=== PATIENT | female | born 1980 | race Hispanic/Latino ===

== ENCOUNTER 2020-11-07 09:03 | Outpatient (CLI) | payer OTHER, SELFPAY ==
[2020-11-07] MEDS ORDERED: Iopamidol 370 76% 100 ML VIAL ONE (14:31)
== END 2020-11-07 09:04 | disposition home or self-care (01) ==
LOC: CT 09:03
PROVIDERS: ATTEND Internal Medicine Hematology & Oncology
DX: Z51.11 Encounter for antineoplastic chemotherapy (principal); C50.812 Malignant neoplasm of overlapping sites of left female breast; N63.20 Unspecified lump in the left breast, unspecified quadrant; R59.0 Localized enlarged lymph nodes; R91.8 Other nonspecific abnormal finding of lung field; N20.0 Calculus of kidney
CPT/HCPCS: 71260; 74177; 78306; A9503; Q9967

== ENCOUNTER 2020-11-10 09:05 | Day surgery (SDC) | payer OTHER, SELFPAY ==
[2020-11-10] MEDS ORDERED: diphenhydrAMINE 25 MG CAP PO SCH (09:45)
[2020-11-10] MEDS ORDERED: Acetaminophen 500 MG TAB PO SCH (09:45)
[2020-11-10 10:57] VITALS: TEMP 98
[2020-11-10 12:20] VITALS: BP 105/56
== END 2020-11-10 12:30 | disposition home or self-care (01) ==
LOC: ONC/OP 09:05
PROVIDERS: ATTEND Internal Medicine Hematology & Oncology
PROC: 30233N1 Transfusion of Nonautologous Red Blood Cells into Peripheral Vein, Percutaneous Approach (ICD-10-PCS; principal; 2020-11-10)
DX: D64.9 Anemia, unspecified (principal); D69.6 Thrombocytopenia, unspecified
CPT/HCPCS: 36430; 86850; 86900; 86901; P9016; Q0163

== ENCOUNTER 2020-11-11 12:30 | Outpatient (CLI) | payer OTHER, SELFPAY | END 2020-11-11 12:31 | disposition home or self-care (01) | LOC: ULT 12:30 | PROVIDERS: ATTEND Internal Medicine Hematology & Oncology | DX: Z51.11 Encounter for antineoplastic chemotherapy (principal); C50.812 Malignant neoplasm of overlapping sites of left female breast; I08.1 Rheumatic disorders of both mitral and tricuspid valves | CPT/HCPCS: 93306 ==

== ENCOUNTER 2020-11-21 09:17 | Outpatient (CLI) | payer OTHER | END 2020-11-21 09:18 | disposition home or self-care (01) | LOC: PET 09:17 | PROVIDERS: ATTEND Internal Medicine Hematology & Oncology | DX: C50.812 Malignant neoplasm of overlapping sites of left female breast (principal) | CPT/HCPCS: 78815; A9552 ==

== ENCOUNTER 2020-12-05 10:57 | Day surgery (SDC) | payer OTHER ==
[~2020-12-05 10:57] MED LIST: CARBOPLATIN IVPB SCH; Dexamethasone 10 MG, Ondansetron 2MG/ML MDV 10 MG in Sodium Chloride 0.9% 50 ML IVPB SCH; Ferumoxytol (NON ERSD) 510 MG in Sodium Chloride 0.9% 250 ML 150 ML IVPB SCH; PACLITAXEL IVPB SCH; SODIUM CHLORIDE 0.9% IVPB SCH; Sodium Chloride 0.9% 20 ML ONE
[2020-12-05] MEDS ORDERED: Dexamethasone Sod Phosphate 10 MG, Ondansetron 2MG/ML MDV 10 MG in Sodium Chloride 0.9%... IVPB SCH (11:00)
[2020-12-05] MEDS ORDERED: PACLITAXEL IVPB SCH (11:15)
[2020-12-05] MEDS ORDERED: SODIUM CHLORIDE 0.9% IVPB SCH (11:15)
[2020-12-05 11:22] VITALS: BP 123/60; TEMP 98.1
== END 2020-12-05 15:33 | disposition home or self-care (01) ==
LOC: ONC/OP 10:57
PROVIDERS: ATTEND Internal Medicine Hematology & Oncology
DX: Z51.11 Encounter for antineoplastic chemotherapy (principal); C50.812 Malignant neoplasm of overlapping sites of left female breast; D50.8 Other iron deficiency anemias
CPT/HCPCS: 96367; 96375; 96413; 96417; J1100; J2405; J7030; J7050; J9045; J9267; Q0138

== ENCOUNTER 2020-12-07 15:09 | Outpatient (CLI) | payer OTHER ==
[2020-12-07 16:34] LABS: Anion Gap 15 mmol/L (10-20); BUN (Urea Nitrogen) 23 mg/dL (7.0-18.7); Chloride 106 mmol/L (98-107); Sodium 139 mmol/L (136-145)
[2020-12-07 17:26] LABS: Calc. Creatinine Clearance 0 mL/min (70-130); Calcium 9.2 mg/dL (7.8-10.44); Carbon Dioxide 22 mmol/L (22-29); Glucose 95 mg/dL (70-105)
[2020-12-07 17:31] LABS: #Eosinphils 0.1 10x3/uL (0.0-0.5); #Monocytes 0.4 10x3/uL (0.0-1.1); #Neutrophils 7.1 10x3/uL (1.5-8.4); %Basophils 0.2 % (0.0-2.0); %Eosinophils 0.7 % (0.0-6.0); %Monocytes 4.4 % (0.0-10.0); %Neutrophils 74.1 % (40.0-75.0); Hemoglobin 10.4 g/dL (12.0-15.5); Mean Corpuscular HGB CONC 29.8 g/dL (32.0-36.0); Mean Corpuscular Volume 73.9 fl (81.6-98.3); Platelet Count 300 10x3/uL (150-450); RBC Distribution Width 29.8 % (11.5-14.5); Red Blood Cell (RBC) Count 4.72 10x6/uL (3.90-5.03); White Blood Cell (WBC) Count 9.6 10x3/uL (3.5-10.5)
[2020-12-07 20:38] LABS: Anisocytosis MARKED = >30 cells (100X) (0-5/hpf); Hypochromia SLIGHT = 6-15 cells (100X) (0-5/hpf); Macrocytosis SLIGHT = 6-15 cells (100X) (0-5/hpf); Microcytosis MODERATE=15-30 cells (100X) (0-5/hpf)
[2020-12-07 20:39] LABS: Platelet Morphology Comment Appears Adequate
[2020-12-08 01:16] LABS: SARS-CoV-2 PCR by NAA Not Detected (NotDetected)
== END 2020-12-07 15:10 | disposition home or self-care (01) ==
LOC: LABBT 15:09
PROVIDERS: ATTEND Specialist
DX: Z01.812 Encounter for preprocedural laboratory examination (principal); Z20.822 Contact with and (suspected) exposure to COVID-19; C50.912 Malignant neoplasm of unspecified site of left female breast; N63.20 Unspecified lump in the left breast, unspecified quadrant
CPT/HCPCS: 80048; 85025; 87635; U0003; U0005

== ENCOUNTER 2020-12-08 11:48 | Day surgery (SDC) | payer OTHER ==
[2020-12-07 12:39] VITALS: BMI 29.8
[2020-12-08] MEDS ORDERED: Acetaminophen 500 MG TAB ONE (12:05)
[2020-12-08] MEDS ORDERED: Ketorolac Tromethamine 30 MG/ML VIAL ONE (12:06)
[2020-12-08] MEDS ORDERED: Lidocaine 1% w/Epinephrine 1:100K 20 ML VIAL ONE (14:14)
[2020-12-08] MEDS ORDERED: Bupivacaine 0.25% HCL 30 ML VIAL ONE (14:14)
[2020-12-08] MEDS ORDERED: Fentanyl 100 MCG/2 ML VIAL ONE (14:48)
[2020-12-08] MEDS ORDERED: PHENYLEPHRINE-NS 100 MCG/ML 10 ML SYRINGE ONE (14:59)
[2020-12-08] MEDS ORDERED: Dexamethasone 20 MG/5 ML VIAL ONE (14:59)
[2020-12-08] MEDS ORDERED: Ondansetron PF 4 MG/2 ML Vial ONE (14:59)
[2020-12-08] MEDS ORDERED: PROPOFOL 200 MG/20 ML VIAL ONE (14:59)
== END 2020-12-08 17:25 | disposition home or self-care (01) ==
LOC: SDC 11:48
PROVIDERS: ATTEND Specialist
PROC: 02HV33Z Insertion of Infusion Device into Superior Vena Cava, Percutaneous Approach (ICD-10-PCS; principal; 2020-12-08)
DX: C50.912 Malignant neoplasm of unspecified site of left female breast (principal); Z87.891 Personal history of nicotine dependence
CPT/HCPCS: 71045; C1788; J0690; J1100; J1642; J1885; J2405; J2704; J3010; S0020

== ENCOUNTER 2020-12-12 11:42 | Day surgery (SDC) | payer OTHER ==
[~2020-12-12 11:42] MED LIST changes: -Dexamethasone 10 MG, Ondansetron 2MG/ML MDV 10 MG in Sodium Chloride 0.9% 50 ML IVPB SCH; +Dexamethasone Sod Phosphate 10 MG, Ondansetron 2MG/ML MDV 10 MG in Sodium Chloride 0.9%... IVPB SCH; -Ferumoxytol (NON ERSD) 510 MG in Sodium Chloride 0.9% 250 ML 150 ML IVPB SCH; -Sodium Chloride 0.9% 20 ML ONE
[2020-12-12 11:51] VITALS: BP 107/55; TEMP 97.9
[2020-12-12] MEDS ORDERED: Sodium Chloride 0.9% 20 ML ONE (12:16)
== END 2020-12-12 15:15 | disposition home or self-care (01) ==
LOC: ONC/OP 11:42
PROVIDERS: ATTEND Internal Medicine Hematology & Oncology
DX: Z51.11 Encounter for antineoplastic chemotherapy (principal); C50.812 Malignant neoplasm of overlapping sites of left female breast; D50.8 Other iron deficiency anemias
CPT/HCPCS: 96375; 96413; 96417; J1100; J1642; J2405; J7030; J7050; J9045; J9267

== ENCOUNTER 2020-12-19 10:34 | Day surgery (SDC) | payer OTHER ==
[~2020-12-19 10:34] MED LIST changes: +Pembrolizumab 200 MG in Sodium Chloride 0.9% 250 ML 250 ML IV SCH
[2020-12-19] MEDS ORDERED: Sodium Chloride 0.9% 20 ML ONE (10:37)
[2020-12-19 11:25] VITALS: BP 115/60; TEMP 98.3
== END 2020-12-19 14:28 | disposition home or self-care (01) ==
LOC: ONC/OP 10:34
PROVIDERS: ATTEND Internal Medicine Hematology & Oncology
DX: Z51.12 Encounter for antineoplastic immunotherapy (principal); C50.812 Malignant neoplasm of overlapping sites of left female breast; D50.8 Other iron deficiency anemias
CPT/HCPCS: 96375; 96413; 96417; J1100; J1642; J2405; J7050; J9045; J9267

== ENCOUNTER 2020-12-27 09:12 | Day surgery (SDC) | payer OTHER ==
[~2020-12-27 09:12] MED LIST changes: -Pembrolizumab 200 MG in Sodium Chloride 0.9% 250 ML 250 ML IV SCH
[2020-12-27] MEDS ORDERED: Sodium Chloride 0.9% 30 ML ONE (09:23)
[2020-12-27 10:20] VITALS: BP 101/65
[2020-12-27] MEDS ORDERED: SODIUM CHLORIDE 0.9% IVPB SCH (10:30)
[2020-12-27] MEDS ORDERED: CARBOPLATIN IVPB SCH (10:30)
== END 2020-12-27 13:29 | disposition home or self-care (01) ==
LOC: ONC/OP 09:12
PROVIDERS: ATTEND Internal Medicine Hematology & Oncology
DX: Z51.11 Encounter for antineoplastic chemotherapy (principal); C50.812 Malignant neoplasm of overlapping sites of left female breast; D50.8 Other iron deficiency anemias
CPT/HCPCS: 82565; 96375; 96413; 96417; J1100; J1642; J2405; J7050; J9045; J9267

== ENCOUNTER 2021-01-02 11:47 | Day surgery (SDC) | payer OTHER ==
[2021-01-02 12:18] VITALS: BP 133/64; TEMP 97.9
[2021-01-02] MEDS ORDERED: SODIUM CHLORIDE 0.9% IVPB SCH (12:45)
[2021-01-02] MEDS ORDERED: CARBOPLATIN IVPB SCH (12:45)
[2021-01-02] MEDS ORDERED: Sodium Chloride 0.9% 20 ML ONE (13:01)
== END 2021-01-02 15:21 | disposition home or self-care (01) ==
LOC: ONC/OP 11:47
PROVIDERS: ATTEND Internal Medicine Hematology & Oncology
DX: Z51.11 Encounter for antineoplastic chemotherapy (principal); C50.812 Malignant neoplasm of overlapping sites of left female breast; D50.8 Other iron deficiency anemias
CPT/HCPCS: 96375; 96413; 96417; J1100; J1642; J2405; J7050; J9045; J9267

== ENCOUNTER 2021-01-09 11:13 | Day surgery (SDC) | payer OTHER ==
[~2021-01-09 11:13] MED LIST changes: +Pembrolizumab 200 MG in Sodium Chloride 0.9% 250 ML 250 ML IV SCH
[2021-01-09] MEDS ORDERED: Sodium Chloride 0.9% 20 ML ONE (11:24)
[2021-01-09 11:47] VITALS: BP 121/59
== END 2021-01-09 14:39 | disposition home or self-care (01) ==
LOC: ONC/OP 11:13
PROVIDERS: ATTEND Internal Medicine Hematology & Oncology
DX: Z51.11 Encounter for antineoplastic chemotherapy (principal); C50.812 Malignant neoplasm of overlapping sites of left female breast; D50.8 Other iron deficiency anemias
CPT/HCPCS: 96375; 96413; 96417; J1100; J1642; J2405; J7050; J9045; J9267

== ENCOUNTER 2021-01-16 11:41 | Day surgery (SDC) | payer OTHER ==
[~2021-01-16 11:41] MED LIST changes: -Pembrolizumab 200 MG in Sodium Chloride 0.9% 250 ML 250 ML IV SCH
[2021-01-16 12:24] VITALS: BP 113/57; TEMP 98.5
[2021-01-16] MEDS ORDERED: Sodium Chloride 0.9% 20 ML ONE (12:41)
== END 2021-01-16 15:07 | disposition home or self-care (01) ==
LOC: ONC/OP 11:41
PROVIDERS: ATTEND Internal Medicine Hematology & Oncology
DX: Z51.11 Encounter for antineoplastic chemotherapy (principal); C50.812 Malignant neoplasm of overlapping sites of left female breast; D50.8 Other iron deficiency anemias
CPT/HCPCS: 96375; 96413; 96417; J1100; J1642; J2405; J7050; J9045; J9267

== ENCOUNTER 2021-01-23 12:15 | Day surgery (SDC) | payer OTHER ==
[~2021-01-23 12:15] MED LIST changes: +Dexamethasone 10 MG/ML VIAL SLOW IVP SCH; +Ondansetron PF 4 MG/2 ML Vial IVP SCH
[2021-01-23] MEDS ORDERED: Sodium Chloride 0.9% 20 ML ONE ×2 (12:19→12:26)
[2021-01-23 12:39] VITALS: BP 116/57; TEMP 98.1
== END 2021-01-23 14:47 | disposition home or self-care (01) ==
LOC: ONC/OP 12:15
PROVIDERS: ATTEND Internal Medicine Hematology & Oncology
DX: Z51.11 Encounter for antineoplastic chemotherapy (principal); C50.812 Malignant neoplasm of overlapping sites of left female breast; D50.8 Other iron deficiency anemias
CPT/HCPCS: 96375; 96413; 96417; J1100; J1642; J2405; J7050; J9045; J9267

== ENCOUNTER 2021-01-31 12:18 | Day surgery (SDC) | payer OTHER ==
[~2021-01-31 12:18] MED LIST changes: -Dexamethasone 10 MG/ML VIAL SLOW IVP SCH; -Ondansetron PF 4 MG/2 ML Vial IVP SCH; +Pembrolizumab 200 MG in Sodium Chloride 0.9% 250 ML 250 ML IVPB SCH
[2021-01-31] MEDS ORDERED: Sodium Chloride 0.9% 20 ML ONE (14:29)
== END 2021-01-31 16:02 | disposition home or self-care (01) ==
LOC: ONC/OP 12:18
PROVIDERS: ATTEND Internal Medicine Hematology & Oncology
DX: Z51.11 Encounter for antineoplastic chemotherapy (principal); C50.812 Malignant neoplasm of overlapping sites of left female breast; D50.8 Other iron deficiency anemias
CPT/HCPCS: 96375; 96413; 96417; J1100; J1642; J2405; J7050; J9045; J9267

== ENCOUNTER 2021-02-07 11:28 | Day surgery (SDC) | payer OTHER ==
[~2021-02-07 11:28] MED LIST changes: -CARBOPLATIN IVPB SCH; +CARBOplatin 200 MG in Sodium Chloride 0.9% 250 ML 250 ML IVPB SCH
[2021-02-07] MEDS ORDERED: Sodium Chloride 0.9% 20 ML ONE (11:35)
[2021-02-07 12:02] VITALS: BP 113/53; TEMP 98.4
[2021-02-07 12:25] LABS: ALT (SGPT) 25 U/L (8-55); AST (SGOT) 24 U/L (5-34); Albumin 3.6 g/dL (3.5-5.0); Alkaline Phosphatase 63 U/L (40-110); Anion Gap 10 mmol/L (10-20); BUN (Urea Nitrogen) 13 mg/dL (7.0-18.7); Bilirubin, Total 0.3 mg/dL (0.2-1.2); Calc. Creatinine Clearance 105 mL/min (70-130); Carbon Dioxide 27 mmol/L (22-29); Chloride 105 mmol/L (98-107); Globulin 2.9 g/dL (2.4-3.5); Glucose 90 mg/dL (70-105); Potassium 3.9 mmol/L (3.5-5.1); Protein, Total 6.5 g/dL (6.0-8.3); Sodium 138 mmol/L (136-145); Uric Acid 7.5 mg/dL (2.6-6.0)
[2021-02-07] MEDS ORDERED: CARBOPLATIN IVPB SCH (14:15)
[2021-02-07] MEDS ORDERED: SODIUM CHLORIDE 0.9% IVPB SCH (14:15)
== END 2021-02-07 15:29 | disposition home or self-care (01) ==
LOC: ONC/OP 11:28
PROVIDERS: ATTEND Internal Medicine Hematology & Oncology
DX: Z51.12 Encounter for antineoplastic immunotherapy (principal); C50.812 Malignant neoplasm of overlapping sites of left female breast; D50.8 Other iron deficiency anemias
CPT/HCPCS: 36591; 80053; 83615; 84550; 96375; 96413; 96417; J1100; J1642; J2405; J7050; J9045; J9267

== ENCOUNTER 2021-03-08 12:49 | Day surgery (SDC) | payer OTHER ==
[~2021-03-08 12:49] MED LIST changes: -CARBOplatin 200 MG in Sodium Chloride 0.9% 250 ML 250 ML IVPB SCH; -Dexamethasone Sod Phosphate 10 MG, Ondansetron 2MG/ML MDV 10 MG in Sodium Chloride 0.9%... IVPB SCH; -PACLITAXEL IVPB SCH; +PEGFILGRASTIM-JMDB 6 MG/0.6 ML SYRINGE SQ SCH; -Pembrolizumab 200 MG in Sodium Chloride 0.9% 250 ML 250 ML IVPB SCH; -SODIUM CHLORIDE 0.9% IVPB SCH
[2021-03-08 13:11] VITALS: BP 121/76; TEMP 97.4
== END 2021-03-08 13:11 | disposition home or self-care (01) ==
LOC: ONC/OP 12:49
PROVIDERS: ATTEND Internal Medicine Hematology & Oncology
DX: Z51.11 Encounter for antineoplastic chemotherapy (principal); C50.812 Malignant neoplasm of overlapping sites of left female breast; D50.8 Other iron deficiency anemias
CPT/HCPCS: 96372; Q5108

== ENCOUNTER 2021-03-22 12:51 | Day surgery (SDC) | payer OTHER ==
[2021-03-22 13:04] VITALS: BP 111/57
== END 2021-03-22 13:01 | disposition home or self-care (01) ==
LOC: ONC/OP 12:51
PROVIDERS: ATTEND Internal Medicine Hematology & Oncology
DX: Z76.89 Persons encountering health services in other specified circumstances (principal); C50.812 Malignant neoplasm of overlapping sites of left female breast; D50.8 Other iron deficiency anemias
CPT/HCPCS: 96372; Q5108

== ENCOUNTER 2021-04-04 10:56 | Day surgery (SDC) | payer OTHER ==
[~2021-04-04 10:56] MED LIST changes: +Cyclophosphamide 1 GM in Sodium Chloride 0.9% 250 ML 250 ML IVPB SCH; +DOXORUBICIN IVPB SCH; +PALONOSETRON HCL 0.05 MG/ML 5 ML VIAL IVP SCH; -PEGFILGRASTIM-JMDB 6 MG/0.6 ML SYRINGE SQ SCH; +Palonosetron HCl 0.25 MG in Sodium Chloride 0.9% 50 ML IVPB SCH; +SODIUM CHLORIDE 0.9% IVPB SCH
[2021-04-04] MEDS ORDERED: Sodium Chloride 0.9% 20 ML ONE (11:02)
[2021-04-04 11:31] VITALS: BP 121/58
== END 2021-04-04 13:30 | disposition home or self-care (01) ==
LOC: ONC/OP 10:56
PROVIDERS: ATTEND Internal Medicine Hematology & Oncology
DX: Z51.11 Encounter for antineoplastic chemotherapy (principal); C50.812 Malignant neoplasm of overlapping sites of left female breast; D50.8 Other iron deficiency anemias
CPT/HCPCS: 96367; 96375; 96413; 96417; J1100; J1453; J1642; J2469; J3490; J7050; J9000; J9070

== ENCOUNTER 2021-04-05 12:58 | Day surgery (SDC) | payer OTHER ==
[2021-04-05] MEDS ORDERED: PEGFILGRASTIM-JMDB 6 MG/0.6 ML SYRINGE ONE (13:03)
[2021-04-05 13:34] VITALS: BP 111/69
== END 2021-04-05 13:35 | disposition home or self-care (01) ==
LOC: ONC/OP 12:58
PROVIDERS: ATTEND Internal Medicine Hematology & Oncology
DX: Z76.89 Persons encountering health services in other specified circumstances (principal); C50.812 Malignant neoplasm of overlapping sites of left female breast; D50.8 Other iron deficiency anemias
CPT/HCPCS: 96372; Q5108

== ENCOUNTER 2021-04-20 12:50 | Day surgery (SDC) | payer OTHER ==
[~2021-04-20 12:50] MED LIST changes: -Palonosetron HCl 0.25 MG in Sodium Chloride 0.9% 50 ML IVPB SCH; +Pembrolizumab 200 MG in Sodium Chloride 0.9% 250 ML 250 ML IV SCH
[2021-04-20] MEDS ORDERED: Sodium Chloride 0.9% 20 ML ONE (13:33)
[2021-04-20 14:35] VITALS: BP 123/59; TEMP 98.4
== END 2021-04-20 16:30 | disposition home or self-care (01) ==
LOC: ONC/OP 12:50
PROVIDERS: ATTEND Internal Medicine Hematology & Oncology
DX: Z51.12 Encounter for antineoplastic immunotherapy (principal); C50.812 Malignant neoplasm of overlapping sites of left female breast; D50.8 Other iron deficiency anemias
CPT/HCPCS: 96367; 96375; 96413; 96417; J1100; J1453; J1642; J2469; J3490; J7050; J9000; J9070

== ENCOUNTER 2021-04-21 13:16 | Day surgery (SDC) | payer OTHER ==
[~2021-04-21 13:16] MED LIST changes: -Cyclophosphamide 1 GM in Sodium Chloride 0.9% 250 ML 250 ML IVPB SCH; -DOXORUBICIN IVPB SCH; -PALONOSETRON HCL 0.05 MG/ML 5 ML VIAL IVP SCH; +PEGFILGRASTIM-JMDB 6 MG/0.6 ML SYRINGE SQ SCH; -Pembrolizumab 200 MG in Sodium Chloride 0.9% 250 ML 250 ML IV SCH; -SODIUM CHLORIDE 0.9% IVPB SCH
[2021-04-21 13:48] VITALS: BP 106/59; TEMP 98.1
== END 2021-04-21 13:49 | disposition home or self-care (01) ==
LOC: ONC/OP 13:16
PROVIDERS: ATTEND Internal Medicine Hematology & Oncology
DX: Z76.89 Persons encountering health services in other specified circumstances (principal); C50.812 Malignant neoplasm of overlapping sites of left female breast; D50.8 Other iron deficiency anemias
CPT/HCPCS: 96372; Q5108

== ENCOUNTER 2021-05-04 13:07 | Outpatient (CLI) | payer OTHER ==
[2021-05-04 14:00] LABS: Anion Gap 17 mmol/L (10-20); BUN (Urea Nitrogen) 8 mg/dL (7.0-18.7); Calc. Creatinine Clearance 0 mL/min (70-130); Calcium 9.6 mg/dL (7.8-10.44); Carbon Dioxide 22 mmol/L (22-29); Chloride 103 mmol/L (98-107); Glucose 98 mg/dL (70-105); Potassium 3.5 mmol/L (3.5-5.1); Sodium 138 mmol/L (136-145)
[2021-05-04 14:05] LABS: #Eosinphils 0.1 10x3/uL (0.0-0.5); #Monocytes 0.9 10x3/uL (0.0-1.1); %Basophils 0.4 % (0.0-2.0); %Eosinophils 0.9 % (0.0-6.0); %Monocytes 13.1 % (0.0-10.0); %Neutrophils 71.9 % (40.0-75.0); Hemoglobin 9.8 g/dL (12.0-15.5); Mean Corpuscular HGB CONC 33.7 g/dL (32.0-36.0); Mean Corpuscular Hemoglobin 33.3 pg (27.0-33.0); Mean Platelet Volume 10.1 fl (7.4-10.4); Platelet Count 275 10x3/uL (150-450); RBC Distribution Width 14.3 % (11.5-14.5); Red Blood Cell (RBC) Count 2.94 10x6/uL (3.90-5.03)
[2021-05-05 08:32] LABS: SARS-CoV-2 PCR by NAA Not Detected (NotDetected)
== END 2021-05-04 13:08 | disposition home or self-care (01) ==
LOC: LABBT 13:07
PROVIDERS: ATTEND Specialist
DX: Z01.812 Encounter for preprocedural laboratory examination (principal); N63.20 Unspecified lump in the left breast, unspecified quadrant; C50.912 Malignant neoplasm of unspecified site of left female breast; Z20.822 Contact with and (suspected) exposure to COVID-19
CPT/HCPCS: 80048; 85025; U0003; U0005

== ENCOUNTER 2021-05-09 08:11 | Day surgery (SDC) | payer OTHER ==
[2021-05-08 13:56] VITALS: BMI 32.8
[2021-05-09] MEDS ORDERED: Ketorolac Tromethamine 30 MG/ML VIAL ONE (10:06)
[2021-05-09] MEDS ORDERED: Acetaminophen 500 MG TAB ONE (10:06)
[2021-05-09] MEDS ORDERED: Isosulfan Blue 50 MG/5 ML VIAL ONE (11:07)
[2021-05-09] MEDS ORDERED: Bupivacaine 0.25% HCL 30 ML VIAL ONE (11:07)
[2021-05-09] MEDS ORDERED: Lidocaine 1% w/Epinephrine 1:100K 20 ML VIAL ONE (11:07)
[2021-05-09] MEDS ORDERED: Fentanyl 100 MCG/2 ML VIAL ONE ×3 (11:11→15:05)
[2021-05-09] MEDS ORDERED: SUGAMMADEX SODIUM 200 MG/2 ML VIAL ONE (11:12)
[2021-05-09] MEDS ORDERED: PROPOFOL 200 MG/20 ML VIAL ONE (11:31)
[2021-05-09] MEDS ORDERED: Dexamethasone 20 MG/5 ML VIAL ONE (11:31)
[2021-05-09] MEDS ORDERED: PHENYLEPHRINE-NS 100 MCG/ML 10 ML SYRINGE ONE (11:31)
[2021-05-09] MEDS ORDERED: Esmolol 100 MG/10 ML VIAL ONE (11:31)
[2021-05-09] MEDS ORDERED: Rocuronium Bromide 10 MG/ML (10ML VIAL) ONE (11:31)
[2021-05-09] MEDS ORDERED: Lidocaine 1% PF 5 ML VIAL ONE (11:31)
[2021-05-09] MEDS ORDERED: Ondansetron PF 4 MG/2 ML Vial ONE (11:31)
[2021-05-09] MEDS ORDERED: Glycopyrrolate 0.2 MG/ML 5 ML SYRINGE ONE (11:31)
[2021-05-09] MEDS ORDERED: Phenylephrine 10 MG/ML VIAL ONE (12:39)
[2021-05-09] MEDS ORDERED: HYDROcodone/Acetaminophen 5/325 mg Tablet ONE (16:44)
== END 2021-05-09 16:58 | disposition home or self-care (01) ==
LOC: SDC 08:11
PROVIDERS: ATTEND Specialist
PROC: 0HTU0ZZ Resection of Left Breast, Open Approach (ICD-10-PCS; principal; 2021-05-09)
PROC: 07B60ZX Excision of Left Axillary Lymphatic, Open Approach, Diagnostic (ICD-10-PCS; principal; 2021-05-09)
DX: C50.212 Malignant neoplasm of upper-inner quadrant of left female breast (principal); C77.3 Secondary and unspecified malignant neoplasm of axilla and upper limb lymph nodes; Z17.1 Estrogen receptor negative status [ER-]; Z87.891 Personal history of nicotine dependence
CPT/HCPCS: 78195; 88307; 88331; 88334; 88342; A9541; J1100; J1885; J2370; J2405; J2704; J3010; Q9968; S0020

== ENCOUNTER 2021-06-15 13:05 | Day surgery (SDC) | payer OTHER ==
[~2021-06-15 13:05] MED LIST changes: -PEGFILGRASTIM-JMDB 6 MG/0.6 ML SYRINGE SQ SCH; +Pembrolizumab 400 MG in Sodium Chloride 0.9% 250 ML 250 ML IVPB SCH
[2021-06-15 13:28] VITALS: BP 117/57; TEMP 98.8
[2021-06-15] MEDS ORDERED: Sodium Chloride 0.9% 20 ML ONE (13:53)
== END 2021-06-15 14:27 | disposition home or self-care (01) ==
LOC: ONC/OP 13:05
PROVIDERS: ATTEND Internal Medicine Hematology & Oncology
DX: Z51.12 Encounter for antineoplastic immunotherapy (principal); C50.812 Malignant neoplasm of overlapping sites of left female breast; D50.8 Other iron deficiency anemias
CPT/HCPCS: 96413; J1642

== ENCOUNTER 2021-06-26 10:20 | Inpatient (IN) | payer SELFPAY ==
[2021-06-26 11:13] LABS: #Eosinphils 0.3 thou/uL (0.0-0.7); #Lymphocytes 1.5 thou/uL (1.20-3.40); #Monocytes 0.7 thou/uL (0.11-0.59); #Neutrophils 3.3 thou/uL (1.40-6.50); %Basophils 0.1 % (0.0-1.0); %Eosinophils 5.9 % (0.0-10.0); %Monocytes 11.9 % (0.0-10.0); Mean Corpuscular HGB CONC 33.3 g/dL (32.0-36.0); Mean Corpuscular Hemoglobin 30.7 pg (27.0-31.0); Mean Corpuscular Volume 92.2 fL (78.0-98.0); Mean Platelet Volume 7.9 fL (7.4-10.4); Platelet Count 297 thou/uL (130-400); RBC Distribution Width 13.3 % (11.5-14.5); Red Blood Cell (RBC) Count 3.92 mill/uL (4.20-5.40); White Blood Cell (WBC) Count 5.9 thou/uL (4.8-10.8)
[2021-06-26 11:18] LABS: INR-International Normal Ratio 1.1; PTT 40.1 sec (22.9-36.1); Prothrombin Time 14.1 sec (12.0-14.7)
[2021-06-26] MEDS ORDERED: cefTRIAXone\\ROCEPHIN 2 GM VIAL ONE (11:24)
[2021-06-26 11:32] LABS: ALT (SGPT) 12 U/L (8-55); AST (SGOT) 29 U/L (5-34); Albumin 3.8 g/dL (3.5-5.0); Alkaline Phosphatase 47 U/L (40-110); Anion Gap 24 mmol/L (10-20); BUN (Urea Nitrogen) 22 mg/dL (7.0-18.7); Bilirubin, Total 0.4 mg/dL (0.2-1.2); Calc. Creatinine Clearance 0 mL/min (70-130); Calcium 11.4 mg/dL (7.8-10.44); Carbon Dioxide 16 mmol/L (22-29); Chloride 98 mmol/L (98-107); Globulin 3.7 g/dL (2.4-3.5); Potassium 4.3 mmol/L (3.5-5.1); Protein, Total 7.5 g/dL (6.0-8.3); Sodium 134 mmol/L (136-145)
[2021-06-26 11:44] LABS: Glucose 59 mg/dL (70-105)
[2021-06-26 16:57] LABS: SARS-CoV-2 NAA Rapid Test Not Detected (NotDetected)
[2021-06-26] MEDS ORDERED: Bisacodyl 5 MG TAB PO PRN (18:30)
[2021-06-26] MEDS: Sodium Chloride 0.9% 1,000 ML IV SCH (18:36)
[2021-06-26] MEDS: HYDROcodone/Acetaminophen 5/325 mg Tablet PO PRN (19:44)
[2021-06-26 19:52] VITALS: BMI 27.1
[2021-06-27] MEDS: Ondansetron PF 4 MG/2 ML Vial IVP PRN ×2 (03:25→19:41)
[2021-06-27] MEDS: Sodium Chloride 0.9% 1,000 ML IV SCH (03:29)
[2021-06-27] MEDS: HYDROcodone/Acetaminophen 5/325 mg Tablet PO PRN ×3 (05:21→18:31)
[2021-06-27] MEDS ORDERED: Dextrose 50% Abboject 50 ML SYRINGE SLOW IVP PRN (06:07)
[2021-06-27] MEDS ORDERED: Dextrose 5% in Water 1,000 ML IV PRN (06:07)
[2021-06-27] MEDS: Dextrose 5 % And 0.9 % NaCl 1,000 ML IV SCH ×2 (06:12→15:43)
[2021-06-27 07:03] LABS: #Basophils 0.1 thou/uL (0.0-0.2); #Eosinphils 0.5 thou/uL (0.0-0.7); #Lymphocytes 1.5 thou/uL (1.20-3.40); #Monocytes 0.8 thou/uL (0.11-0.59); #Neutrophils 2.5 thou/uL (1.40-6.50); %Basophils 1.1 % (0.0-1.0); %Eosinophils 8.9 % (0.0-10.0); %Lymphocytes 28.9 % (21.0-51.0); %Monocytes 14.2 % (0.0-10.0); %Neutrophils 46.9 % (42.0-75.0); Mean Corpuscular HGB CONC 31.9 g/dL (32.0-36.0); Mean Corpuscular Hemoglobin 31.6 pg (27.0-31.0); Mean Corpuscular Volume 98.9 fL (78.0-98.0); Mean Platelet Volume 7.9 fL (7.4-10.4); Platelet Count 216 thou/uL (130-400); RBC Distribution Width 13.4 % (11.5-14.5); Red Blood Cell (RBC) Count 3.48 mill/uL (4.20-5.40); White Blood Cell (WBC) Count 5.3 thou/uL (4.8-10.8)
[2021-06-27 07:26] LABS: Anion Gap 20 mmol/L (10-20); BUN (Urea Nitrogen) 17 mg/dL (7.0-18.7); Calc. Creatinine Clearance 54 mL/min (70-130); Calcium 10.3 mg/dL (7.8-10.44); Carbon Dioxide 12 mmol/L (22-29); Chloride 105 mmol/L (98-107); Glucose 70 mg/dL (70-105); Potassium 3.9 mmol/L (3.5-5.1); Sodium 133 mmol/L (136-145)
[2021-06-27] MEDS: Enoxaparin Sodium 40 MG/0.4 ML SYRINGE SC SCH (08:58)
[2021-06-27] MEDS ORDERED: Cosyntropin 250 MCG VIAL SLOW IVP SCH (09:30)
[2021-06-27] MEDS ORDERED: Sodium Chloride 0.65% Nasal 44 ML BOT EA NARE PRN (09:49)
[2021-06-27] MEDS ORDERED: Sodium Chloride 0.9% 500 ML IV SCH (14:00)
[2021-06-27] MEDS ORDERED: Sodium Chloride 0.9% 1,000 ML IV SCH (21:45)
[2021-06-28] MEDS: Dextrose 5 % And 0.9 % NaCl 1,000 ML IV SCH ×2 (01:34→13:34)
[2021-06-28 04:29] LABS: INR-International Normal Ratio 1.1; PTT 40.3 sec (22.9-36.1); Prothrombin Time 14.4 sec (12.0-14.7)
[2021-06-28 04:42] LABS: Free T4 (Free Thyroxine) 0.92 ng/dL (0.70-1.48)
[2021-06-28] MEDS ORDERED: Acetaminophen 325 MG TAB PO SCH (04:45)
[2021-06-28] MEDS: Ondansetron PF 4 MG/2 ML Vial IVP PRN ×2 (04:47→11:16)
[2021-06-28 05:17] LABS: Thyroid Stimulating Hormone 2.1423 uIU/mL (0.35-4.94)
[2021-06-28 05:19] LABS: Follicle Stimulating Hormone 121.21 mIU/mL (See Ranges); Luteinizing Hormone 59.59 mIU/mL (See Ranges)
[2021-06-28] MEDS ORDERED: predniSONE 20 MG TAB PO SCH (08:00)
[2021-06-28] MEDS ORDERED: predniSONE 5 MG TAB PO SCH (08:00)
[2021-06-28] MEDS: Enoxaparin Sodium 40 MG/0.4 ML SYRINGE SC SCH (08:18)
[2021-06-28] MEDS: Fludrocortisone Acetate 0.1 MG TAB PO SCH (08:18)
[2021-06-28] MEDS: Cefepime 1 GM in Sodium Chloride 0.9% 100 ML IVPB SCH ×2 (08:42→21:10)
[2021-06-28] MEDS ORDERED: Fludrocortisone Acetate 0.1 MG TAB PO SCH (09:00)
[2021-06-28] MEDS ORDERED: Magnevist 469MG/ML 20 ML VIAL ONE (09:46)
[2021-06-28] MEDS: Vancomycin 1 GM in Premix Bag 1 BAG IVPB SCH (10:00)
[2021-06-28 12:15] LABS: DRVVT Confirm 33.1
[2021-06-28 12:16] LABS: Factor VIII Test 151.6 % ACTIVE (56-157)
[2021-06-28] MEDS: Sodium Chloride 0.9% 1,000 ML IV SCH (17:20)
[2021-06-28] MEDS: Hydrocortisone Sod Succ/PF 100 mg/2 ml Vial IVP SCH (17:22)
[2021-06-29] MEDS: Hydrocortisone Sod Succ/PF 100 mg/2 ml Vial IVP SCH ×5 (01:23→21:00)
[2021-06-29] MEDS ORDERED: predniSONE 5 MG TAB PO SCH (08:00)
[2021-06-29] MEDS: Cefepime 1 GM in Sodium Chloride 0.9% 100 ML IVPB SCH ×2 (08:16→20:59)
[2021-06-29] MEDS: Enoxaparin Sodium 40 MG/0.4 ML SYRINGE SC SCH (08:21)
[2021-06-29] MEDS: Fludrocortisone Acetate 0.1 MG TAB PO SCH (08:22)
[2021-06-29 08:45] LABS: #Lymphocytes 0.4 thou/uL (1.20-3.40); #Monocytes 0.2 thou/uL (0.11-0.59); #Neutrophils 1.5 thou/uL (1.40-6.50); %Basophils 0.4 % (0.0-1.0); %Eosinophils 0.3 % (0.0-10.0); %Lymphocytes 17.9 % (21.0-51.0); %Monocytes 10.1 % (0.0-10.0); %Neutrophils 71.3 % (42.0-75.0); Hemoglobin 8.8 g/dL (12.0-16.0); Mean Corpuscular HGB CONC 33.7 g/dL (32.0-36.0); Mean Corpuscular Hemoglobin 30.8 pg (27.0-31.0); Mean Corpuscular Volume 91.5 fL (78.0-98.0); Mean Platelet Volume 8.5 fL (7.4-10.4); Platelet Count 176 thou/uL (130-400); RBC Distribution Width 12.9 % (11.5-14.5); Red Blood Cell (RBC) Count 2.87 mill/uL (4.20-5.40); White Blood Cell (WBC) Count 2.2 thou/uL (4.8-10.8)
[2021-06-29 08:58] LABS: ALT (SGPT) 8 U/L (8-55); AST (SGOT) 14 U/L (5-34); Albumin 2.9 g/dL (3.5-5.0); Alkaline Phosphatase 28 U/L (40-110); Anion Gap 11 mmol/L (10-20); BUN (Urea Nitrogen) 11 mg/dL (7.0-18.7); Bilirubin, Total 0.2 mg/dL (0.2-1.2); Calc. Creatinine Clearance 89 mL/min (70-130); Calcium 9.8 mg/dL (7.8-10.44); Carbon Dioxide 20 mmol/L (22-29); Chloride 109 mmol/L (98-107); Glucose 133 mg/dL (70-105); Potassium 3.3 mmol/L (3.5-5.1); Protein, Total 5.9 g/dL (6.0-8.3); Sodium 137 mmol/L (136-145)
[2021-06-29] MEDS ORDERED: Lorazepam 2 MG/ML VIAL SLOW IVP SCH (09:00)
[2021-06-29 09:20] LABS: CKMB 0.5 ng/mL (0-6.6)
[2021-06-29] MEDS: Vancomycin 1 GM in Premix Bag 1 BAG IVPB SCH (10:06)
[2021-06-29 11:50] LABS: CKMB 0.7 ng/mL (0-6.6)
[2021-06-29] MEDS: Ondansetron PF 4 MG/2 ML Vial IVP PRN (13:05)
[2021-06-29 13:12] LABS: ANA Symphony (Qualitative) Negative (Negative); ANA Symphony (Quantitative) 0.3 Ratio (< 0.7 Negative); Cardiolipin IgA Ab 3.6 APL-U/mL (<14 Negative); Cardiolipin IgG Ab 0.7 GPL-U/mL (<10 Negative); Cardiolipin IgM Ab Less than 0.8 MPL-U/mL (<10 Negative); EliA APS New Method **** NEW METHOD ****; beta-2-Glycoprotein I IgA Ab 3.1 U/mL (<7 Negative); beta-2-Glycoprotein I IgG Ab 0.7 U/mL (<7 Negative); beta-2-Glycoprotein I IgM Abs Less than 2.9 U/mL (<7 Negative); dsDNA IgG Antibody 0.7 IU/mL (<10 Negative)
[2021-06-29] MEDS: Sodium Chloride 0.9% 1,000 ML IV SCH (14:15)
[2021-06-29] MEDS ORDERED: Potassium Chloride 20 MEQ TAB PO SCH (16:30)
[2021-06-29] MEDS: HYDROcodone/Acetaminophen 5/325 mg Tablet PO PRN (20:59)
[2021-06-30] MEDS: Hydrocortisone Sod Succ/PF 100 mg/2 ml Vial IVP SCH ×2 (05:33→13:26)
[2021-06-30 07:56] VITALS: BP 117/75; TEMP 97.8
[2021-06-30] MEDS: Cefepime 1 GM in Sodium Chloride 0.9% 100 ML IVPB SCH (08:32)
[2021-06-30] MEDS: Enoxaparin Sodium 40 MG/0.4 ML SYRINGE SC SCH (08:33)
[2021-06-30 08:37] LABS: Vancomycin, Trough 17.4 ug/mL
[2021-06-30] MEDS: Vancomycin 1 GM in Premix Bag 1 BAG IVPB SCH (09:31)
[2021-06-30] MEDS: Sodium Chloride 0.9% 1,000 ML IV SCH (09:36)
[2021-06-30] MEDS: Fludrocortisone Acetate 0.1 MG TAB PO SCH (13:27)
[2021-06-30 14:15] LABS: Growth Hormone 0.1 ng/mL (0.0-10.0)
[2021-07-04 15:00] LABS: Factor IX Test 107.3 % ACTIVE (56-149)
[2021-07-04 15:08] LABS: HEX PHOS LA Tube 1 42.6 SEC; HEX PHOS LA Tube 2 33.9 SEC; Hexagonal Phospholipid Neut 8.6 SEC (0-8.0)
== END 2021-06-30 15:46 | disposition home or self-care (01) | DRG 872 ==
LOC: ERS 10:20 → T4-B 15:55
PROVIDERS: ADMIT Internal Medicine; ATTEND Internal Medicine
DX: A41.89 Other specified sepsis (principal); N17.9 Acute kidney failure, unspecified; E87.1 Hypo-osmolality and hyponatremia; E27.2 Addisonian crisis; E44.0 Moderate protein-calorie malnutrition; Z20.822 Contact with and (suspected) exposure to COVID-19; E86.0 Dehydration; T45.1X5A Adverse effect of antineoplastic and immunosuppressive drugs, initial encounter; C50.912 Malignant neoplasm of unspecified site of left female breast; R11.2 Nausea with vomiting, unspecified; E16.2 Hypoglycemia, unspecified; J06.9 Acute upper respiratory infection, unspecified; Z17.0 Estrogen receptor positive status [ER+]; Z90.10 Acquired absence of unspecified breast and nipple; Z92.21 Personal history of antineoplastic chemotherapy; Z68.27 Body mass index [BMI] 27.0-27.9, adult
CPT/HCPCS: 0240U; 36415; 36416; 70553; 74176; 74183; 80048; 80053; 80202; 80400; 82024; 82088; 82533; 82553; 83001; 83002; 83003; 83605; 83880; 84146; 84244; 84439; 84443; 84481; 84484; 85025; 85240; 85250; 85598; 85610; 85613; 85730; 86038; 86146; 86147; 86225; 87040; 87149; 87633; 93005; 93010; 93306; 94640; 94760; 96365; A9579; J0692; J0696; J0834; J1650; J1720; J2405; J3370; J3490; J7030; J7042; J7050; J7512; J7620

== ENCOUNTER 2021-11-28 09:22 | Outpatient (CLI) | payer OTHER ==
[~2021-11-28 09:22] MED LIST changes: +Magnevist 469MG/ML 20 ML VIAL ONE; -Pembrolizumab 400 MG in Sodium Chloride 0.9% 250 ML 250 ML IVPB SCH
== END 2021-11-28 09:23 | disposition home or self-care (01) ==
LOC: MRI 09:22
PROVIDERS: ATTEND Internal Medicine Hematology & Oncology
DX: C79.31 Secondary malignant neoplasm of brain (principal); C50.812 Malignant neoplasm of overlapping sites of left female breast; G93.9 Disorder of brain, unspecified; G93.6 Cerebral edema
CPT/HCPCS: 70553; A9579

== ENCOUNTER 2022-02-02 11:13 | Outpatient (CLI) | payer OTHER ==
[~2022-02-02 11:13] MED LIST changes: +Gadobenate Dimeglumine 529 MG/1 ML (20ML VIAL) ONE; -Magnevist 469MG/ML 20 ML VIAL ONE
== END 2022-02-02 11:14 | disposition home or self-care (01) ==
LOC: MRI 11:13
PROVIDERS: ATTEND Radiology Radiation Oncology
DX: C79.31 Secondary malignant neoplasm of brain (principal); C34.90 Malignant neoplasm of unspecified part of unspecified bronchus or lung; G93.6 Cerebral edema
CPT/HCPCS: 70553; A9577

== ENCOUNTER 2022-04-02 10:52 | Emergency (ER) | payer SELFPAY ==
[2022-04-02 11:56] LABS: #Eosinphils 0.1 thou/uL (0.0-0.7); #Lymphocytes 1.4 thou/uL (1.20-3.40); #Monocytes 0.6 thou/uL (0.11-0.59); #Neutrophils 2.9 thou/uL (1.40-6.50); %Eosinophils 2.4 % (0.0-10.0); %Lymphocytes 27.7 % (21.0-51.0); %Neutrophils 57.9 % (42.0-75.0); Hemoglobin 13.2 g/dL (12.0-16.0); Mean Corpuscular HGB CONC 32.8 g/dL (32.0-36.0); Mean Corpuscular Hemoglobin 30.6 pg (27.0-31.0); Mean Corpuscular Volume 93.4 fL (78.0-98.0); Mean Platelet Volume 8.5 fL (7.4-10.4); Platelet Count 178 thou/uL (130-400); RBC Distribution Width 13.6 % (11.5-14.5); Red Blood Cell (RBC) Count 4.31 mill/uL (4.20-5.40); White Blood Cell (WBC) Count 5.1 thou/uL (4.8-10.8)
[2022-04-02] MEDS ORDERED: Ondansetron PF 4 MG/2 ML Vial ONE (12:03)
[2022-04-02 12:13] LABS: ALT (SGPT) 26 U/L (8-55); AST (SGOT) 56 U/L (5-34); Albumin 3.4 g/dL (3.5-5.0); Alkaline Phosphatase 53 U/L (40-110); Anion Gap 18 mmol/L (10-20); BUN (Urea Nitrogen) 11 mg/dL (7.0-18.7); Bilirubin, Total 0.4 mg/dL (0.2-1.2); CK (CPK) 35 U/L (29-168); Calc. Creatinine Clearance 0 mL/min (70-130); Calcium 10.1 mg/dL (7.8-10.44); Carbon Dioxide 23 mmol/L (22-29); Chloride 104 mmol/L (98-107); Estimated GFR 52; Globulin 3.1 g/dL (2.4-3.5); Glucose 95 mg/dL (70-105); Lipase 25 U/L (8-78); Potassium 3.9 mmol/L (3.5-5.1); Protein, Total 6.5 g/dL (6.0-8.3); Sodium 141 mmol/L (136-145)
[2022-04-02 12:34] LABS: Bilirubin Negative (Negative); Blood, Urine Negative (Negative); Clarity Clear (Clear); Glucose, Urine (Dipstick) Normal (Negative); Ketone, Urine Negative (Negative); Leukocyte 250 Leu/uL (Negative); Nitrite Negative (Negative); Protein, Urine (Dipstick) 20 mg/dL (Neg-Trace); RBC/HPF 0-3 HPF (0-3); Urobilinogen Normal mg/dL (Less than 2); pH, Urine 5.5 (5.0-9.0)
[2022-04-02 12:36] LABS: Bacteria/HPF 1+ HPF (None Seen)
[2022-04-02 13:03] LABS: SARS-CoV-2 NAA Rapid Test Not Detected (NotDetected)
== END 2022-04-02 14:05 | disposition home or self-care (01) ==
LOC: ERS 10:52
DX: C71.9 Malignant neoplasm of brain, unspecified (principal); R11.0 Nausea; R22.32 Localized swelling, mass and lump, left upper limb; Z20.822 Contact with and (suspected) exposure to COVID-19
CPT/HCPCS: 36415; 70450; 71045; 80053; 81003; 81015; 82140; 82550; 83690; 84484; 85025; 87086; 93005; 96374; J2405; U0002

== ENCOUNTER 2022-06-09 15:06 | Inpatient (IN) | payer MEDICAID, SELFPAY ==
[~2022-06-09 15:06] MED LIST changes: -Gadobenate Dimeglumine 529 MG/1 ML (20ML VIAL) ONE; +Iopamidol-370 76% 500 ML 1 ML ONE
[2022-06-09] MEDS ORDERED: levETIRAcetam 500 MG/5 ML VIAL ONE (15:41)
[2022-06-09 15:51] LABS: #Lymphocytes 0.9 thou/uL (1.20-3.40); #Monocytes 0.4 thou/uL (0.11-0.59); #Neutrophils 6.2 thou/uL (1.40-6.50); %Basophils 0.1 % (0.0-1.0); %Eosinophils 0.3 % (0.0-10.0); %Lymphocytes 11.9 % (21.0-51.0); %Monocytes 5.1 % (0.0-10.0); %Neutrophils 82.6 % (42.0-75.0); Hemoglobin 12.2 g/dL (12.0-16.0); Mean Corpuscular Volume 93.6 fl (78.0-98.0); Mean Platelet Volume 8.5 fL (7.4-10.4); Platelet Count 127 10x3/uL (130-400); RBC Distribution Width 16.9 % (11.5-14.5); Red Blood Cell (RBC) Count 4.06 mill/uL (4.20-5.40); White Blood Cell (WBC) Count 7.5 10x3/uL (4.8-10.8)
[2022-06-09 16:03] LABS: Acetaminophen Less than 10.0 mcg/mL (10.0-30.0); Alcohol Less than 10 mg/dL (Less than 10); CK (CPK) 17 U/L (29-168); Salicylate Less than 8.0 mg/dL (15.0-30.0)
[2022-06-09 16:05] LABS: ALT (SGPT) 75 U/L (8-55); AST (SGOT) 29 U/L (5-34); Albumin 3.3 g/dL (3.5-5.0); Alkaline Phosphatase 92 U/L (40-110); Anion Gap 15 mmol/L (10-20); BUN (Urea Nitrogen) 33 mg/dL (7.0-18.7); Bilirubin, Total 0.7 mg/dL (0.2-1.2); Calc. Creatinine Clearance 0 mL/min (70-130); Calcium 8.9 mg/dL (7.8-10.44); Carbon Dioxide 27 mmol/L (22-29); Chloride 102 mmol/L (98-107); Estimated GFR 75; Globulin 2.7 g/dL (2.4-3.5); Glucose 160 mg/dL (70-105); Sodium 140 mmol/L (136-145)
[2022-06-09 18:48] LABS: BHCG - Serum Negative (NEGATIVE); Pregs Control Background? CLEAR/WHITE (CLR/WHITE); Pregs Control Bar Appear? YES (CONTROL BAR)
[2022-06-09 18:54] LABS: Bilirubin Negative (Negative); Blood, Urine Negative (Negative); Glucose, Urine (Dipstick) Negative (Negative); Ketone, Urine Negative (Negative); Leukocyte Negative (Negative); Nitrite Negative (Negative); Protein, Urine (Dipstick) 30 mg/dL (Neg-Trace); Specific Gravity, Urine 1.015 (1.005-1.030); Urobilinogen 0.2 mg/dL (Less than 2)
[2022-06-09 18:55] LABS: Clarity Clear (Clear)
[2022-06-09 19:03] LABS: Amphetamine Not Detected (NotDetected); Barbiturates Screen Not Detected (NotDetected); Benzodiazepine Screen Not Detected (NotDetected); Cocaine Metabolite Screen Not Detected (NotDetected); Methadone Not Detected (NotDetected); Methamphetamine Not Detected (NotDetected); Opiate Screen Not Detected (NotDetected); Oxycodone Screen Not Detected (NotDetected); Phencyclidine (PCP) Not Detected (NotDetected); THC/Cannabinoid Screen Not Detected (NotDetected); Tricyclic Screen Not Detected (NotDetected)
[2022-06-09 19:04] LABS: Bacteria/HPF Rare-Few HPF (None Seen); RBC/HPF 0-3 HPF (0-3); Squamous Epithelial 0-3 HPF (0-3); WBC/HPF 0-3 HPF (0-3)
[2022-06-09] MEDS ORDERED: Ondansetron PF 4 MG/2 ML Vial IVP PRN (22:00)
[2022-06-09] MEDS ORDERED: Acetaminophen 325 MG TAB PO PRN (22:00)
[2022-06-09] MEDS ORDERED: Ondansetron ODT 4 MG TAB SL PRN (22:00)
[2022-06-09] MEDS ORDERED: Diazepam 10 MG/2 ML SYRINGE IVP PRN (22:02)
[2022-06-09 22:31] VITALS: BMI 39.4
[2022-06-09] MEDS: Sodium Chloride 0.9% 1,000 ML IV SCH (22:48)
[2022-06-10 05:37] LABS: ALT (SGPT) 64 U/L (8-55); AST (SGOT) 22 U/L (5-34); Albumin 3.1 g/dL (3.5-5.0); Alkaline Phosphatase 74 U/L (40-110); Anion Gap 10 mmol/L (10-20); BUN (Urea Nitrogen) 22 mg/dL (7.0-18.7); Bilirubin, Total 0.5 mg/dL (0.2-1.2); Calc. Creatinine Clearance 144 mL/min (70-130); Calcium 8.4 mg/dL (7.8-10.44); Carbon Dioxide 28 mmol/L (22-29); Chloride 107 mmol/L (98-107); Estimated GFR 106; Globulin 2.3 g/dL (2.4-3.5); Glucose 103 mg/dL (70-105); Potassium 3.9 mmol/L (3.5-5.1); Protein, Total 5.4 g/dL (6.0-8.3); Sodium 141 mmol/L (136-145)
[2022-06-10] MEDS: Famotidine 20 MG TAB PO SCH (07:50)
[2022-06-10] MEDS: Dexamethasone 4 MG TAB PO SCH (07:50)
[2022-06-10] MEDS: levETIRAcetam 500 MG TAB PO SCH ×2 (07:50→20:24)
[2022-06-10] MEDS: Sodium Chloride 0.9% 1,000 ML IV SCH (07:51)
[2022-06-10 07:58] LABS: #Lymphocytes 0.7 thou/uL (1.20-3.40); #Monocytes 0.3 thou/uL (0.11-0.59); #Neutrophils 5.3 thou/uL (1.40-6.50); %Basophils 0.3 % (0.0-1.0); %Eosinophils 0.4 % (0.0-10.0); %Lymphocytes 10.5 % (21.0-51.0); %Monocytes 4.8 % (0.0-10.0); Hemoglobin 11.9 g/dL (12.0-16.0); Mean Corpuscular Hemoglobin 31.5 pg (27.0-31.0); Mean Corpuscular Volume 95.5 fl (78.0-98.0); Mean Platelet Volume 8.9 fL (7.4-10.4); Platelet Count 126 10x3/uL (130-400); Red Blood Cell (RBC) Count 3.77 mill/uL (4.20-5.40); White Blood Cell (WBC) Count 6.3 10x3/uL (4.8-10.8)
[2022-06-10] MEDS ORDERED: Magnevist 469MG/ML 20 ML VIAL ONE (09:49)
[2022-06-11] MEDS ORDERED: Acetaminophen 325 MG TAB PO PRN (08:26)
[2022-06-11 09:07] LABS: #Monocytes 0.4 thou/uL (0.11-0.59); %Basophils 0.1 % (0.0-1.0); %Eosinophils 0.6 % (0.0-10.0); %Lymphocytes 15.5 % (21.0-51.0); %Monocytes 5.7 % (0.0-10.0); %Neutrophils 78.1 % (42.0-75.0); Hemoglobin 12.8 g/dL (12.0-16.0); Mean Corpuscular HGB CONC 32.6 g/dL (32.0-36.0); Mean Corpuscular Hemoglobin 31.1 pg (27.0-31.0); Mean Corpuscular Volume 95.4 fl (78.0-98.0); Mean Platelet Volume 7.9 fL (7.4-10.4); Platelet Count 136 10x3/uL (130-400); RBC Distribution Width 16.7 % (11.5-14.5); Red Blood Cell (RBC) Count 4.13 mill/uL (4.20-5.40); White Blood Cell (WBC) Count 6.5 10x3/uL (4.8-10.8)
[2022-06-11 09:27] LABS: Anion Gap 12 mmol/L (10-20); BUN (Urea Nitrogen) 26 mg/dL (7.0-18.7); Calc. Creatinine Clearance 120 mL/min (70-130); Calcium 9.5 mg/dL (7.8-10.44); Carbon Dioxide 30 mmol/L (22-29); Chloride 105 mmol/L (98-107); Estimated GFR 84; Glucose 82 mg/dL (70-105); Magnesium 1.4 mg/dL (1.6-2.6); Phosphorus 2.2 mg/dL (2.3-4.7); Potassium 3.9 mmol/L (3.5-5.1); Sodium 143 mmol/L (136-145)
[2022-06-11] MEDS: Dexamethasone 4 MG TAB PO SCH ×2 (09:36→21:30)
[2022-06-11] MEDS: Famotidine 20 MG TAB PO SCH (09:36)
[2022-06-11] MEDS: levETIRAcetam 500 MG TAB PO SCH ×2 (09:36→21:29)
[2022-06-11] MEDS ORDERED: Electrolyte Replacement Protocol 1 EACH FS SCH (11:45)
[2022-06-11] MEDS ORDERED: Magnesium 2 GM/50 ML(in water) 2 GM in Premix Bag 1 BAG IVPB SCH (13:15)
[2022-06-11] MEDS: Calcium Carbonate 600 MG + Vit D TAB PO SCH (16:56)
[2022-06-12 04:53] LABS: #Lymphocytes 0.8 thou/uL (1.20-3.40); #Monocytes 0.2 thou/uL (0.11-0.59); #Neutrophils 4.7 thou/uL (1.40-6.50); %Eosinophils 0.6 % (0.0-10.0); %Lymphocytes 13.1 % (21.0-51.0); %Monocytes 3.6 % (0.0-10.0); %Neutrophils 82.7 % (42.0-75.0); Hemoglobin 11.8 g/dL (12.0-16.0); Mean Corpuscular HGB CONC 32.4 g/dL (32.0-36.0); Mean Corpuscular Hemoglobin 30.7 pg (27.0-31.0); Mean Corpuscular Volume 94.8 fl (78.0-98.0); Platelet Count 136 10x3/uL (130-400); RBC Distribution Width 16.6 % (11.5-14.5); Red Blood Cell (RBC) Count 3.85 mill/uL (4.20-5.40); White Blood Cell (WBC) Count 5.7 10x3/uL (4.8-10.8)
[2022-06-12 05:23] LABS: Anion Gap 12 mmol/L (10-20); BUN (Urea Nitrogen) 32 mg/dL (7.0-18.7); Calc. Creatinine Clearance 97 mL/min (70-130); Calcium 9.1 mg/dL (7.8-10.44); Carbon Dioxide 30 mmol/L (22-29); Chloride 104 mmol/L (98-107); Estimated GFR 66; Glucose 172 mg/dL (70-105); Magnesium 1.7 mg/dL (1.6-2.6); Potassium 3.8 mmol/L (3.5-5.1); Sodium 142 mmol/L (136-145)
[2022-06-12 05:42] LABS: Phosphorus 2.7 mg/dL (2.3-4.7)
[2022-06-12] MEDS ORDERED: Magnesium 2 GM/50 ML(in water) 2 GM in Premix Bag 1 BAG IVPB SCH (08:00)
[2022-06-12] MEDS ORDERED: Multivit, Therapeutic 1 TAB PO SCH (09:00)
[2022-06-12] MEDS ORDERED: FLU VACC QS2022-23(6MOS UP)/PF 60 MCG/0.5 ML SYRINGE IM ONE (09:00)
[2022-06-12] MEDS: levETIRAcetam 500 MG TAB PO SCH (09:10)
[2022-06-12] MEDS: Famotidine 20 MG TAB PO SCH (09:10)
[2022-06-12] MEDS: Calcium Carbonate 600 MG + Vit D TAB PO SCH (09:10)
[2022-06-12] MEDS: Dexamethasone 4 MG TAB PO SCH (09:10)
[2022-06-12 14:12] VITALS: BP 132/80; TEMP 97.5
== END 2022-06-12 14:00 | disposition home or self-care (01) | DRG 54 ==
LOC: ERS 15:06 → 2NO 20:54 → OBSVTOIN 06-10 13:57
PROVIDERS: ADMIT Internal Medicine; ATTEND Internal Medicine
DX: C79.31 Secondary malignant neoplasm of brain (principal); G93.6 Cerebral edema; C50.912 Malignant neoplasm of unspecified site of left female breast; K21.9 Gastro-esophageal reflux disease without esophagitis; G93.89 Other specified disorders of brain; E86.0 Dehydration; E66.9 Obesity, unspecified; D69.6 Thrombocytopenia, unspecified; E83.42 Hypomagnesemia; E83.39 Other disorders of phosphorus metabolism; G47.33 Obstructive sleep apnea (adult) (pediatric); N18.30 Chronic kidney disease, stage 3 unspecified; D63.1 Anemia in chronic kidney disease; Z17.0 Estrogen receptor positive status [ER+]; Z88.8 Allergy status to other drugs, medicaments and biological substances; Z68.39 Body mass index [BMI] 39.0-39.9, adult; Z79.899 Other long term (current) drug therapy
CPT/HCPCS: 36415; 70450; 70553; 71275; 80048; 80053; 80306; 80307; 81003; 81015; 82550; 83605; 83735; 84100; 84443; 84484; 84703; 85025; 93005; 95712; 95816; 95819; 95957; 96374; A9579; G0378; J1953; J3475; J7050; J8540; Q9967; U0003; U0005

== ENCOUNTER 2022-06-25 17:21 | Emergency (ER) | payer MEDICAID ==
[2022-06-25] MEDS ORDERED: Dexamethasone 10 MG/ML VIAL ONE (18:27)
[2022-06-25] MEDS ORDERED: Metoclopramide HCl 10 MG/2 ML VIAL ONE (18:27)
[2022-06-25] MEDS ORDERED: Ketorolac Tromethamine 30 MG/ML VIAL ONE (18:35)
[2022-06-25 18:36] LABS: #Basophils 0.1 thou/uL (0.0-0.2); #Lymphocytes 0.8 thou/uL (1.20-3.40); #Monocytes 0.3 thou/uL (0.11-0.59); #Neutrophils 4.5 thou/uL (1.40-6.50); %Basophils 1.7 % (0.0-1.0); %Eosinophils 0.2 % (0.0-10.0); %Lymphocytes 13.7 % (21.0-51.0); %Monocytes 5.9 % (0.0-10.0); %Neutrophils 78.6 % (42.0-75.0); Hemoglobin 12.7 g/dL (12.0-16.0); Mean Corpuscular HGB CONC 33.8 g/dL (32.0-36.0); Mean Corpuscular Hemoglobin 32.2 pg (27.0-31.0); Mean Corpuscular Volume 95.3 fl (78.0-98.0); Mean Platelet Volume 8.9 fL (7.4-10.4); Platelet Count 149 10x3/uL (130-400); RBC Distribution Width 17.3 % (11.5-14.5); Red Blood Cell (RBC) Count 3.94 mill/uL (4.20-5.40); White Blood Cell (WBC) Count 5.8 10x3/uL (4.8-10.8)
[2022-06-25 18:55] LABS: ALT (SGPT) 116 U/L (8-55); AST (SGOT) 46 U/L (5-34); Albumin 3.3 g/dL (3.5-5.0); Alkaline Phosphatase 105 U/L (40-110); Anion Gap 14 mmol/L (10-20); BUN (Urea Nitrogen) 39 mg/dL (7.0-18.7); Bilirubin, Total 0.4 mg/dL (0.2-1.2); CK (CPK) 29 U/L (29-168); Calc. Creatinine Clearance 0 mL/min (70-130); Calcium 8.6 mg/dL (7.8-10.44); Carbon Dioxide 23 mmol/L (22-29); Chloride 108 mmol/L (98-107); Estimated GFR 56; Globulin 2.8 g/dL (2.4-3.5); Glucose 240 mg/dL (70-105); Potassium 3.4 mmol/L (3.5-5.1); Protein, Total 6.1 g/dL (6.0-8.3); Sodium 142 mmol/L (136-145)
[2022-06-25 19:47] LABS: Bacteria/HPF None Seen HPF (None Seen); Bilirubin Negative (Negative); Blood, Urine Negative (Negative); Clarity Clear (Clear); Glucose, Urine (Dipstick) 300 mg/dL (Negative); Ketone, Urine Negative (Negative); Leukocyte Negative Leu/uL (Negative); Nitrite Negative (Negative); Protein, Urine (Dipstick) 100 mg/dL (Neg-Trace); RBC/HPF 0-3 HPF (0-3); Specific Gravity, Urine 1.018 (1.002-1.036); Squamous Epithelial 0-3 HPF (0-3); Urobilinogen Normal mg/dL (Less than 2); WBC/HPF 0-3 HPF (0-3)
== END 2022-06-25 22:20 | disposition home or self-care (01) ==
LOC: ERS 17:21
DX: R53.1 Weakness (principal); R51.9 Headache, unspecified
CPT/HCPCS: 36415; 70450; 80053; 81003; 81015; 82550; 83605; 85025; 93005; 96374; 96375; J1100; J1885; J2765

== ENCOUNTER 2022-07-04 16:07 | Inpatient (IN) | payer MEDICAID ==
[2022-07-04] MEDS ORDERED: Promethazine 25 MG TAB PO PRN (16:44)
[2022-07-04] MEDS ORDERED: Ondansetron PF 4 MG/2 ML Vial IVP PRN (16:44)
[2022-07-04] MEDS ORDERED: diphenhydrAMINE 50 MG CAP PO PRN (16:44)
[2022-07-04] MEDS ORDERED: Morphine 2 MG/ML VIAL SLOW IVP PRN (16:44)
[2022-07-04] MEDS ORDERED: Mag-Al 1200 mg/1200 mg/30 ML UDCUP PO PRN (16:44)
[2022-07-04] MEDS ORDERED: Morphine 4 MG/ML VIAL SLOW IVP PRN (17:15)
[2022-07-04 17:20] LABS: #Lymphocytes 1.1 thou/uL (1.20-3.40); #Monocytes 0.3 thou/uL (0.11-0.59); #Neutrophils 7.5 thou/uL (1.40-6.50); %Basophils 0.3 % (0.0-1.0); %Eosinophils 0.2 % (0.0-10.0); %Lymphocytes 12.7 % (21.0-51.0); %Monocytes 3.4 % (0.0-10.0); %Neutrophils 83.4 % (42.0-75.0); Hemoglobin 13.1 g/dL (12.0-16.0); Mean Corpuscular Hemoglobin 32.5 pg (27.0-31.0); Mean Corpuscular Volume 93.1 fl (78.0-98.0); Mean Platelet Volume 8.6 fL (7.4-10.4); Platelet Count 122 10x3/uL (130-400); RBC Distribution Width 16.9 % (11.5-14.5); Red Blood Cell (RBC) Count 4.02 mill/uL (4.20-5.40)
[2022-07-04 17:37] LABS: INR-International Normal Ratio 0.9; Prothrombin Time 12.8 sec (12.0-14.7)
[2022-07-04 17:38] LABS: ALT (SGPT) 72 U/L (8-55); AST (SGOT) 25 U/L (5-34); Albumin 3.3 g/dL (3.5-5.0); Alkaline Phosphatase 87 U/L (40-110); Anion Gap 15 mmol/L (10-20); BUN (Urea Nitrogen) 36 mg/dL (7.0-18.7); Bilirubin, Total 0.4 mg/dL (0.2-1.2); Calc. Creatinine Clearance 0 mL/min (70-130); Calcium 8.9 mg/dL (7.8-10.44); Carbon Dioxide 25 mmol/L (22-29); Chloride 104 mmol/L (98-107); Estimated GFR 60; Globulin 2.9 g/dL (2.4-3.5); Glucose 220 mg/dL (70-105); Potassium 3.5 mmol/L (3.5-5.1); Protein, Total 6.2 g/dL (6.0-8.3); Sodium 140 mmol/L (136-145)
[2022-07-04 17:42] LABS: PTT 19.4 sec (22.9-36.1)
[2022-07-04] MEDS ORDERED: Morphine 4 MG/ML VIAL ONE (19:22)
[2022-07-04] MEDS ORDERED: Ondansetron PF 4 MG/2 ML Vial ONE (19:22)
[2022-07-04 22:04] LABS: SARS-CoV-2 NAA Rapid Test Not Detected (NotDetected)
[2022-07-04] MEDS: Sodium Chloride 0.9% 1,000 ML IV SCH (22:44)
[2022-07-04] MEDS: Famotidine/PF 20 mg/2ml Vial SLOW IVP SCH (22:58)
[2022-07-04] MEDS: levETIRAcetam 500 MG/5 ML VIAL SLOW IVP SCH (23:00)
[2022-07-05] MEDS: Sodium Chloride 0.9% 1,000 ML IV SCH ×2 (05:46→13:55)
[2022-07-05 06:12] LABS: Anion Gap 14 mmol/L (10-20); BUN (Urea Nitrogen) 37 mg/dL (7.0-18.7); Calc. Creatinine Clearance 109 mL/min (70-130); Calcium 8.7 mg/dL (7.8-10.44); Carbon Dioxide 24 mmol/L (22-29); Chloride 110 mmol/L (98-107); Estimated GFR 74; Glucose 139 mg/dL (70-105); Potassium 3.5 mmol/L (3.5-5.1); Sodium 144 mmol/L (136-145)
[2022-07-05 06:27] LABS: Hemoglobin 13.1 g/dL (12.0-16.0); Mean Corpuscular HGB CONC 34.6 g/dL (32.0-36.0); Mean Corpuscular Hemoglobin 33.2 pg (27.0-31.0); Mean Corpuscular Volume 95.9 fl (78.0-98.0); Mean Platelet Volume 9.2 fL (7.4-10.4); Platelet Count 125 10x3/uL (130-400); Red Blood Cell (RBC) Count 3.94 mill/uL (4.20-5.40); White Blood Cell (WBC) Count 7.6 10x3/uL (4.8-10.8)
[2022-07-05 06:37] LABS: Band 11 % (5-11); Lymphocytes 13 % (21-51); MDiff Complete? YES; Monocytes 1 % (0-10); Myelocyte 6 % (0-0); Neutrophil 69 % (42-75); Nucleated RBC 1 % (0)
[2022-07-05] MEDS ORDERED: Papaverine 60 MG/2 ML VIAL ONE (06:45)
[2022-07-05] MEDS ORDERED: Bacitracin Zinc Ointment 30 gm TUBE ONE (06:46)
[2022-07-05] MEDS ORDERED: CEFAZOLIN 2 GM in Sodium Chloride 0.9% 100 ML IVPB SCH (07:00)
[2022-07-05] MEDS ORDERED: fentaNYL PF 100 MCG/2 ML SYRINGE ONE ×2 (07:12→10:52)
[2022-07-05] MEDS ORDERED: levETIRAcetam 500 MG/5 ML VIAL ONE (07:12)
[2022-07-05] MEDS ORDERED: Vecuronium 10 MG VIAL ONE (07:12)
[2022-07-05] MEDS ORDERED: Propofol 1,000 MG/100 ML VIAL IV ONE (07:13)
[2022-07-05] MEDS ORDERED: Sodium Chloride 0.9% 100 ML ONE (07:20)
[2022-07-05] MEDS ORDERED: CEFAZOLIN 2 GM VIAL ONE (07:20)
[2022-07-05] MEDS ORDERED: Esmolol 100 MG/10 ML VIAL ONE (07:45)
[2022-07-05] MEDS ORDERED: Rocuronium Bromide 10 MG/ML (10ML VIAL) ONE (07:45)
[2022-07-05] MEDS ORDERED: Ondansetron PF 4 MG/2 ML Vial ONE (07:45)
[2022-07-05] MEDS ORDERED: PROPOFOL 200 MG/20 ML VIAL ONE (07:45)
[2022-07-05] MEDS ORDERED: manNITOL 20% 500 ML IVPB SCH (07:45)
[2022-07-05] MEDS ORDERED: Phenylephrine 10 MG/ML VIAL ONE (07:45)
[2022-07-05] MEDS ORDERED: PHENYLEPHRINE-NS 100 MCG/ML 10 ML SYRINGE ONE (09:33)
[2022-07-05] MEDS ORDERED: hydrALAZINE 20 MG/ML VIAL SLOW IVP PRN (10:47)
[2022-07-05] MEDS ORDERED: Labetalol HCl 100 MG/20 ML VIAL SLOW IVP PRN (10:47)
[2022-07-05] MEDS ORDERED: SUGAMMADEX SODIUM 200 MG/2 ML VIAL ONE (10:52)
[2022-07-05] MEDS ORDERED: Ondansetron HCl/PF 4 MG/2 ML Vial IVP PRN (11:18)
[2022-07-05] MEDS ORDERED: Promethazine HCl 25 MG/ML VIAL IVPB PRN (11:18)
[2022-07-05] MEDS ORDERED: PACU-Morphine 4MG/ML VIAL SLOW IVP PRN (11:18)
[2022-07-05] MEDS ORDERED: Promethazine HCl 25 MG/ML VIAL IM PRN (11:18)
[2022-07-05] MEDS ORDERED: HYDROmorphone 2 MG/ML VIAL SLOW IVP PRN (11:18)
[2022-07-05] MEDS ORDERED: Morphine Sulfate 2 MG/ML SYRINGE SLOW IVP PRN (11:18)
[2022-07-05] MEDS: levETIRAcetam 500 MG/5 ML VIAL SLOW IVP SCH ×2 (11:56→21:18)
[2022-07-05] MEDS: Famotidine/PF 20 mg/2ml Vial SLOW IVP SCH ×2 (11:58→21:18)
[2022-07-05] MEDS: Acetaminophen/Codeine 30-300mg Tablet PO PRN ×2 (13:53→19:50)
[2022-07-05] MEDS: Dexamethasone 4 mg/ml Vial SLOW IVP SCH ×2 (13:53→21:19)
[2022-07-05] MEDS ORDERED: Metoprolol Tartrate 5 MG/5 ML VIAL IVP SCH (16:52)
[2022-07-05] MEDS: CEFAZOLIN 2 GM in Sodium Chloride 0.9% 100 ML IVPB SCH ×2 (17:00→23:39)
[2022-07-05] MEDS ORDERED: Dextrose 5% in Water 1,000 ML IV PRN (17:02)
[2022-07-05] MEDS ORDERED: Dextrose 50% Abboject 50 ML SYRINGE SLOW IVP PRN (17:02)
[2022-07-05] MEDS: HumaLOG 300 UNITS/3 ML VIAL SC PRN (21:32)
[2022-07-06] MEDS: Acetaminophen/Codeine 30-300mg Tablet PO PRN ×2 (05:16→13:26)
[2022-07-06] MEDS: Dexamethasone 4 mg/ml Vial SLOW IVP SCH ×3 (05:25→21:38)
[2022-07-06] MEDS ORDERED: Sodium Chloride 0.9% 500 ML IV SCH (08:45)
[2022-07-06] MEDS: Famotidine/PF 20 mg/2ml Vial SLOW IVP SCH ×2 (08:59→21:38)
[2022-07-06] MEDS: levETIRAcetam 500 MG/5 ML VIAL SLOW IVP SCH ×2 (08:59→21:38)
[2022-07-06] MEDS: Sodium Chloride 0.9% 1,000 ML IV SCH ×2 (08:59→21:39)
[2022-07-06] MEDS ORDERED: Iopamidol-370 76% 500 ML 1 ML ONE (12:06)
[2022-07-06] MEDS: HumaLOG 300 UNITS/3 ML VIAL SC PRN ×2 (17:35→21:53)
[2022-07-06] MEDS: Metoprolol Tartrate 25 MG TAB PO SCH (21:38)
[2022-07-07 03:51] LABS: Actual Bicarbonate (HCO3v) 26 mEq/L (22-28); Base Excess 2.5 mEq/L (-2.0 to +3.0); Calcium, Ionized (venous) 1.01 mmol/L (1.16-1.32); Chloride (VBG) 106 mmol/L (98-106); Hemoglobin (Hb) 9.4 g/dL (11.7-15.5); Potassium (VBG) 3.42 mmol/L (3.70-5.30); Sodium 136.8 mmol/L (133-146); pH (venous) 7.49 (7.32-7.43)
[2022-07-07] MEDS: Dexamethasone 4 mg/ml Vial SLOW IVP SCH ×3 (07:52→21:21)
[2022-07-07] MEDS ORDERED: Electrolyte Replacement Protocol 1 EACH FS SCH (08:45)
[2022-07-07] MEDS ORDERED: Electrolyte Replacement Protocol FS PRN (10:00)
[2022-07-07] MEDS: levETIRAcetam 500 MG/5 ML VIAL SLOW IVP SCH ×2 (10:17→21:21)
[2022-07-07] MEDS: Metoprolol Tartrate 25 MG TAB PO SCH ×2 (10:17→19:27)
[2022-07-07] MEDS: Famotidine/PF 20 mg/2ml Vial SLOW IVP SCH ×2 (10:17→21:21)
[2022-07-07] MEDS: HumaLOG 300 UNITS/3 ML VIAL SC PRN ×2 (11:19→21:22)
[2022-07-07 12:13] LABS: Potassium 3.4 mmol/L (3.5-5.1)
[2022-07-07] MEDS ORDERED: Potassium Chloride 20 MEQ TAB PO SCH (13:00)
[2022-07-07] MEDS ORDERED: Metoprolol Tartrate 5 MG/5 ML VIAL IVP PRN (21:53)
[2022-07-07] MEDS ORDERED: Sodium Chloride 0.9% 250 ML IV SCH ×2 (22:00→23:15)
[2022-07-07 23:00] LABS: #Lymphocytes 0.6 thou/uL (1.20-3.40); #Monocytes 0.2 thou/uL (0.11-0.59); #Neutrophils 5.7 thou/uL (1.40-6.50); %Eosinophils 0.3 % (0.0-10.0); %Lymphocytes 9.4 % (21.0-51.0); %Neutrophils 87.4 % (42.0-75.0); Mean Corpuscular Hemoglobin 32.4 pg (27.0-31.0); Mean Corpuscular Volume 95.4 fl (78.0-98.0); Mean Platelet Volume 8.6 fL (7.4-10.4); Platelet Count 101 10x3/uL (130-400); RBC Distribution Width 16.3 % (11.5-14.5); Red Blood Cell (RBC) Count 2.48 mill/uL (4.20-5.40); White Blood Cell (WBC) Count 6.6 10x3/uL (4.8-10.8)
[2022-07-08 00:04] LABS: Albumin 2.5 g/dL (3.5-5.0)
[2022-07-08 00:06] LABS: Calcium 8.1 mg/dL (7.8-10.44); Chloride 109 mmol/L (98-107); Potassium 3.5 mmol/L (3.5-5.1); Sodium 143 mmol/L (136-145)
[2022-07-08 00:07] LABS: Globulin 2.4 g/dL (2.4-3.5); Glucose 194 mg/dL (70-105); Protein, Total 4.9 g/dL (6.0-8.3)
[2022-07-08 00:08] LABS: Anion Gap 12 mmol/L (10-20); Carbon Dioxide 26 mmol/L (22-29)
[2022-07-08 00:09] LABS: Bilirubin, Total 0.2 mg/dL (0.2-1.2)
[2022-07-08 00:10] LABS: Alkaline Phosphatase 76 U/L (40-110); Calc. Creatinine Clearance 124 mL/min (70-130); Estimated GFR 85
[2022-07-08 00:11] LABS: BUN (Urea Nitrogen) 29 mg/dL (7.0-18.7)
[2022-07-08 00:12] LABS: AST (SGOT) 18 U/L (5-34); Magnesium 1.5 mg/dL (1.6-2.6)
[2022-07-08 00:13] LABS: ALT (SGPT) 32 U/L (8-55)
[2022-07-08 03:58] LABS: Bacteria/HPF None Seen HPF (None Seen); Bilirubin Negative (Negative); Blood, Urine Negative (Negative); Clarity Clear (Clear); Glucose, Urine (Dipstick) 150 mg/dL (Negative); Ketone, Urine Negative (Negative); Leukocyte Negative Leu/uL (Negative); Nitrite Negative (Negative); Protein, Urine (Dipstick) 70 mg/dL (Neg-Trace); RBC/HPF 0-3 HPF (0-3); Specific Gravity, Urine 1.018 (1.002-1.036); Squamous Epithelial 0-3 HPF (0-3); Urobilinogen Normal mg/dL (Less than 2); WBC/HPF 0-3 HPF (0-3)
[2022-07-08 05:05] LABS: Hemoglobin A1c 6.5 % (4.0-6.0)
[2022-07-08 05:28] LABS: Anion Gap 12 mmol/L (10-20); BUN (Urea Nitrogen) 29 mg/dL (7.0-18.7); Calc. Creatinine Clearance 133 mL/min (70-130); Calcium 8.3 mg/dL (7.8-10.44); Carbon Dioxide 25 mmol/L (22-29); Chloride 108 mmol/L (98-107); Estimated GFR 93; Glucose 203 mg/dL (70-105); Magnesium 1.6 mg/dL (1.6-2.6); Potassium 3.7 mmol/L (3.5-5.1); Sodium 141 mmol/L (136-145)
[2022-07-08] MEDS: Dexamethasone 4 mg/ml Vial SLOW IVP SCH ×3 (05:49→21:54)
[2022-07-08] MEDS ORDERED: Magnesium 2 GM/50 ML(in water) 2 GM in Premix Bag 1 BAG IVPB SCH (08:00)
[2022-07-08 08:15] LABS: #Lymphocytes 0.6 thou/uL (1.20-3.40); #Monocytes 0.3 thou/uL (0.11-0.59); #Neutrophils 5.5 thou/uL (1.40-6.50); %Basophils 0.1 % (0.0-1.0); %Eosinophils 0.5 % (0.0-10.0); %Lymphocytes 9.4 % (21.0-51.0); %Monocytes 4.1 % (0.0-10.0); %Neutrophils 85.9 % (42.0-75.0); Mean Corpuscular Hemoglobin 32.9 pg (27.0-31.0); Mean Corpuscular Volume 96.9 fl (78.0-98.0); Mean Platelet Volume 8.5 fL (7.4-10.4); Platelet Count 107 10x3/uL (130-400); RBC Distribution Width 16.5 % (11.5-14.5); Red Blood Cell (RBC) Count 2.43 mill/uL (4.20-5.40); White Blood Cell (WBC) Count 6.4 10x3/uL (4.8-10.8)
[2022-07-08] MEDS: Famotidine/PF 20 mg/2ml Vial SLOW IVP SCH ×2 (09:04→20:47)
[2022-07-08] MEDS: levETIRAcetam 500 MG/5 ML VIAL SLOW IVP SCH ×2 (09:04→20:47)
[2022-07-08] MEDS: Metoprolol Tartrate 25 MG TAB PO SCH ×2 (09:04→20:47)
[2022-07-08] MEDS: HumaLOG 300 UNITS/3 ML VIAL SC PRN ×2 (12:22→17:04)
[2022-07-08] MEDS ORDERED: Fleet Enema 133 ML BOT PR PRN (14:41)
[2022-07-08] MEDS ORDERED: Docusate 100 MG CAP PO PRN (14:41)
[2022-07-08] MEDS ORDERED: Bisacodyl 5 MG TAB PO PRN (14:41)
[2022-07-08 16:53] LABS: #Lymphocytes 0.7 thou/uL (1.20-3.40); #Monocytes 0.3 thou/uL (0.11-0.59); #Neutrophils 5.2 thou/uL (1.40-6.50); %Eosinophils 0.6 % (0.0-10.0); %Lymphocytes 11.4 % (21.0-51.0); %Monocytes 5.4 % (0.0-10.0); %Neutrophils 82.6 % (42.0-75.0); Hemoglobin 8.2 g/dL (12.0-16.0); Mean Corpuscular HGB CONC 33.3 g/dL (32.0-36.0); Mean Corpuscular Hemoglobin 32.3 pg (27.0-31.0); Mean Platelet Volume 8.3 fL (7.4-10.4); Platelet Count 110 10x3/uL (130-400); RBC Distribution Width 16.8 % (11.5-14.5); Red Blood Cell (RBC) Count 2.53 mill/uL (4.20-5.40); White Blood Cell (WBC) Count 6.3 10x3/uL (4.8-10.8)
[2022-07-08] MEDS: Insulin Glargine 30 UNITS/0.3 ML VIAL SC SCH (20:47)
[2022-07-09] MEDS: Dexamethasone 4 mg/ml Vial SLOW IVP SCH ×3 (05:02→21:17)
[2022-07-09] MEDS: Acetaminophen/Codeine 30-300mg Tablet PO PRN (05:10)
[2022-07-09 05:21] LABS: #Lymphocytes 0.7 thou/uL (1.20-3.40); #Monocytes 0.3 thou/uL (0.11-0.59); #Neutrophils 4.4 thou/uL (1.40-6.50); %Basophils 0.1 % (0.0-1.0); %Eosinophils 0.6 % (0.0-10.0); %Lymphocytes 13.2 % (21.0-51.0); %Neutrophils 81.1 % (42.0-75.0); Mean Corpuscular HGB CONC 33.6 g/dL (32.0-36.0); Mean Corpuscular Hemoglobin 32.2 pg (27.0-31.0); Mean Corpuscular Volume 95.9 fl (78.0-98.0); Mean Platelet Volume 8.9 fL (7.4-10.4); Platelet Count 113 10x3/uL (130-400); RBC Distribution Width 16.8 % (11.5-14.5); Red Blood Cell (RBC) Count 2.49 mill/uL (4.20-5.40); White Blood Cell (WBC) Count 5.5 10x3/uL (4.8-10.8)
[2022-07-09 05:24] LABS: Anion Gap 14 mmol/L (10-20); BUN (Urea Nitrogen) 30 mg/dL (7.0-18.7); Calc. Creatinine Clearance 126 mL/min (70-130); Calcium 8.3 mg/dL (7.8-10.44); Carbon Dioxide 24 mmol/L (22-29); Chloride 107 mmol/L (98-107); Estimated GFR 87; Glucose 193 mg/dL (70-105); Potassium 3.7 mmol/L (3.5-5.1); Sodium 141 mmol/L (136-145)
[2022-07-09] MEDS: Famotidine/PF 20 mg/2ml Vial SLOW IVP SCH ×2 (10:01→21:16)
[2022-07-09] MEDS: levETIRAcetam 500 MG/5 ML VIAL SLOW IVP SCH ×2 (10:02→21:17)
[2022-07-09] MEDS: Metoprolol Tartrate 25 MG TAB PO SCH ×2 (10:02→21:15)
[2022-07-09] MEDS: Insulin Glargine 30 UNITS/0.3 ML VIAL SC SCH (21:17)
[2022-07-10] MEDS: Acetaminophen/Codeine 30-300mg Tablet PO PRN (05:15)
[2022-07-10] MEDS: Dexamethasone 4 mg/ml Vial SLOW IVP SCH (05:15)
[2022-07-10 05:26] LABS: Anion Gap 12 mmol/L (10-20); BUN (Urea Nitrogen) 26 mg/dL (7.0-18.7); Band 9 % (5-11); Calc. Creatinine Clearance 153 mL/min (70-130); Calcium 8.5 mg/dL (7.8-10.44); Carbon Dioxide 26 mmol/L (22-29); Chloride 106 mmol/L (98-107); Estimated GFR 109; Glucose 103 mg/dL (70-105); Hemoglobin 12.1 g/dL (12.0-16.0); Hypochromia SLIGHT = 6-15 cells (100X) (0-5/hpf); Lymphocytes 20 % (21-51); MDiff Complete? YES; Mean Corpuscular HGB CONC 33.6 g/dL (32.0-36.0); Mean Corpuscular Hemoglobin 32.2 pg (27.0-31.0); Mean Corpuscular Volume 95.8 fl (78.0-98.0); Mean Platelet Volume 8.1 fL (7.4-10.4); Monocytes 13 % (0-10); Neutrophil 58 % (42-75); Platelet Count 110 10x3/uL (130-400); Platelet Morphology Comment Appears Decreased; Potassium 3.9 mmol/L (3.5-5.1); RBC Distribution Width 15.9 % (11.5-14.5); Red Blood Cell (RBC) Count 3.77 mill/uL (4.20-5.40); Sodium 140 mmol/L (136-145); White Blood Cell (WBC) Count 5.9 10x3/uL (4.8-10.8)
[2022-07-10 08:44] VITALS: BP 126/73; TEMP 97
[2022-07-10] MEDS: Metoprolol Tartrate 25 MG TAB PO SCH (08:46)
[2022-07-10] MEDS: Famotidine/PF 20 mg/2ml Vial SLOW IVP SCH (08:47)
[2022-07-10] MEDS: levETIRAcetam 500 MG/5 ML VIAL SLOW IVP SCH (08:47)
[2022-07-10 11:08] VITALS: BMI 36.5
[2022-07-13] MEDS ORDERED: Dexamethasone 4 mg/ml Vial SLOW IVP SCH (21:00)
[2022-07-18] MEDS ORDERED: Dexamethasone 4 mg/ml Vial SLOW IVP SCH (21:00)
[2022-07-21] MEDS ORDERED: Dexamethasone 4 mg/ml Vial SLOW IVP SCH (09:00)
== END 2022-07-10 11:17 | disposition home or self-care (01) | DRG 25 ==
LOC: ERS 16:07 → MSONC 16:59 → CCU 07-05 08:23 → SJJU 07-07 12:51 → 2NO 07-07 20:58
PROVIDERS: ADMIT Neurological Surgery; ATTEND Neurological Surgery
PROC: 00B70ZZ Excision of Cerebral Hemisphere, Open Approach (ICD-10-PCS; principal; 2022-07-05)
PROC: 30233N1 Transfusion of Nonautologous Red Blood Cells into Peripheral Vein, Percutaneous Approach (ICD-10-PCS; 2022-07-09)
DX: C79.31 Secondary malignant neoplasm of brain (principal); G93.6 Cerebral edema; J96.01 Acute respiratory failure with hypoxia; G40.909 Epilepsy, unspecified, not intractable, without status epilepticus; C50.912 Malignant neoplasm of unspecified site of left female breast; E66.01 Morbid (severe) obesity due to excess calories; R53.1 Weakness; N18.2 Chronic kidney disease, stage 2 (mild); K21.9 Gastro-esophageal reflux disease without esophagitis; R51.9 Headache, unspecified; R00.0 Tachycardia, unspecified; K59.00 Constipation, unspecified; R73.9 Hyperglycemia, unspecified; D64.89 Other specified anemias; Z88.8 Allergy status to other drugs, medicaments and biological substances; Z98.890 Other specified postprocedural states; Z68.36 Body mass index [BMI] 36.0-36.9, adult; Z90.12 Acquired absence of left breast and nipple; Z20.822 Contact with and (suspected) exposure to COVID-19; Z79.899 Other long term (current) drug therapy; Z92.3 Personal history of irradiation; Z17.0 Estrogen receptor positive status [ER+]; Z79.52 Long term (current) use of systemic steroids; G47.33 Obstructive sleep apnea (adult) (pediatric); T38.0X5A Adverse effect of glucocorticoids and synthetic analogues, initial encounter
CPT/HCPCS: 36415; 36416; 36430; 71045; 71275; 74176; 80048; 80053; 81001; 82274; 82805; 83036; 83735; 84132; 85025; 85610; 85730; 86850; 86900; 86901; 88307; 88341; 88342; 93005; 93010; 93306; 93970; C1713; J1100; J1815; J1953; J2270; J2370; J2405; J2440; J2704; J3475; J3490; J7030; J7050; P9016; Q9967; S0028; U0002

== ENCOUNTER 2022-10-02 10:30 | Outpatient (CLI) | payer OTHER ==
[~2022-10-02 10:30] MED LIST changes: +Iopamidol 370 76% 100 ML VIAL ONE; -Iopamidol-370 76% 500 ML 1 ML ONE
== END 2022-10-02 10:31 | disposition home or self-care (01) ==
LOC: CT 10:30
PROVIDERS: ATTEND Internal Medicine Hematology & Oncology
DX: C50.812 Malignant neoplasm of overlapping sites of left female breast (principal); K76.0 Fatty (change of) liver, not elsewhere classified
CPT/HCPCS: 71260; 74177; Q9967

== ENCOUNTER 2022-11-12 13:14 | Outpatient (CLI) | payer OTHER ==
[~2022-11-12 13:14] MED LIST changes: -Iopamidol 370 76% 100 ML VIAL ONE; +Magnevist 469MG/ML 20 ML VIAL ONE
== END 2022-11-12 13:15 | disposition home or self-care (01) ==
LOC: MRI 13:14
PROVIDERS: ATTEND Radiology Radiation Oncology
DX: C79.31 Secondary malignant neoplasm of brain (principal); C50.919 Malignant neoplasm of unspecified site of unspecified female breast; G93.89 Other specified disorders of brain
CPT/HCPCS: 70553; A9579

== ENCOUNTER 2022-11-21 12:03 | Observation (INO) | payer MEDICAID, SELFPAY ==
[~2022-11-21 12:03] MED LIST changes: +Iopamidol-370 76% 500 ML MDV (1 ML CHARGE) ONE; -Magnevist 469MG/ML 20 ML VIAL ONE
[2022-11-21 12:42] LABS: #Eosinphils 0.3 thou/uL (0.0-0.7); #Lymphocytes 1.5 thou/uL (1.20-3.40); #Monocytes 0.7 thou/uL (0.11-0.59); %Basophils 0.3 % (0.0-1.0); %Eosinophils 4.8 % (0.0-10.0); %Lymphocytes 22.8 % (21.0-51.0); %Monocytes 10.2 % (0.0-10.0); %Neutrophils 61.9 % (42.0-75.0); Hemoglobin 12.9 g/dL (12.0-16.0); Mean Corpuscular HGB CONC 34.1 g/dL (32.0-36.0); Mean Corpuscular Hemoglobin 32.3 pg (27.0-31.0); Mean Corpuscular Volume 94.7 fl (78.0-98.0); Mean Platelet Volume 8.1 fL (7.4-10.4); Platelet Count 256 10x3/uL (130-400); RBC Distribution Width 12.3 % (11.5-14.5); Red Blood Cell (RBC) Count 3.99 mill/uL (4.20-5.40); White Blood Cell (WBC) Count 6.5 10x3/uL (4.8-10.8)
[2022-11-21 12:54] LABS: PTT 27.1 sec (22.9-36.1); Prothrombin Time 13.5 sec (12.0-14.7)
[2022-11-21 13:03] LABS: ALT (SGPT) 40 U/L (8-55); AST (SGOT) 81 U/L (5-34); Albumin 3.7 g/dL (3.5-5.0); Alkaline Phosphatase 123 U/L (40-110); Anion Gap 15 mmol/L (10-20); BUN (Urea Nitrogen) 21 mg/dL (7.0-18.7); Bilirubin, Total 0.5 mg/dL (0.2-1.2); Calc. Creatinine Clearance 0 mL/min (70-130); Calcium 11.9 mg/dL (7.8-10.44); Carbon Dioxide 19 mmol/L (22-29); Chloride 106 mmol/L (98-107); Estimated GFR 56; Globulin 3.8 g/dL (2.4-3.5); Glucose 94 mg/dL (70-105); Potassium 3.3 mmol/L (3.5-5.1); Protein, Total 7.5 g/dL (6.0-8.3); Sodium 137 mmol/L (136-145)
[2022-11-21] MEDS ORDERED: levETIRAcetam 500 MG/5 ML VIAL ONE (13:31)
[2022-11-21] MEDS ORDERED: Dexamethasone 10 MG/ML VIAL ONE (13:31)
[2022-11-21] MEDS ORDERED: Lorazepam 2 MG/ML VIAL SLOW IVP PRN (14:12)
[2022-11-21] MEDS ORDERED: Calcium Carbonate 500 MG ChewTAB PO PRN (14:16)
[2022-11-21] MEDS ORDERED: Bisacodyl 10 MG SUPP PR PRN (14:16)
[2022-11-21] MEDS ORDERED: Ondansetron ODT 4 MG TAB PO PRN (14:16)
[2022-11-21] MEDS ORDERED: Senokot S 8.6-50 MG TAB PO PRN (14:16)
[2022-11-21] MEDS ORDERED: Ondansetron PF 4 MG/2 ML Vial IVP PRN (14:16)
[2022-11-21] MEDS ORDERED: Acetaminophen 325 MG TAB PO PRN (14:16)
[2022-11-21] MEDS ORDERED: Potassium Chloride 20 MEQ TAB PO SCH (14:30)
[2022-11-21] MEDS ORDERED: Electrolyte Replacement Protocol 1 EACH FS SCH (14:30)
[2022-11-21] MEDS ORDERED: Electrolyte Replacement Protocol FS PRN (14:30)
[2022-11-21 14:31] LABS: Phosphorus 2.4 mg/dL (2.3-4.7)
[2022-11-21] MEDS ORDERED: Magnesium Sulfate 4 GM in Sodium Chloride 0.9% 250 ML 250 ML IVPB SCH (15:00)
[2022-11-21] MEDS ORDERED: Potassium Chloride 20 MEQ TAB ONE (15:14)
[2022-11-21 15:16] LABS: BHCG - Serum Negative (NEGATIVE); Pregs Control Background? CLEAR/WHITE (CLR/WHITE); Pregs Control Bar Appear? YES (CONTROL BAR)
[2022-11-21] MEDS: D5 LR w/20 mEq KCL 1,000 ML IV SCH ×2 (15:20→23:28)
[2022-11-21] MEDS: Magnesium 2 GM/50 ML(in water) 2 GM in Premix Bag 1 BAG IVPB SCH ×2 (16:07→17:14)
[2022-11-21 16:36] VITALS: BMI 29.0
[2022-11-21] MEDS: levETIRAcetam 500 MG TAB PO SCH (23:26)
[2022-11-21] MEDS: Famotidine 20 MG TAB PO SCH (23:27)
[2022-11-21] MEDS: Dexamethasone 4 mg/ml Vial SLOW IVP SCH (23:27)
[2022-11-22 06:10] LABS: #Lymphocytes 0.8 thou/uL (1.20-3.40); #Monocytes 0.2 thou/uL (0.11-0.59); #Neutrophils 5.2 thou/uL (1.40-6.50); %Basophils 0.1 % (0.0-1.0); %Eosinophils 0.1 % (0.0-10.0); %Lymphocytes 13.4 % (21.0-51.0); %Monocytes 2.5 % (0.0-10.0); %Neutrophils 83.8 % (42.0-75.0); Hemoglobin 11.7 g/dL (12.0-16.0); Mean Corpuscular HGB CONC 33.7 g/dL (32.0-36.0); Mean Corpuscular Hemoglobin 31.7 pg (27.0-31.0); Mean Corpuscular Volume 94.2 fl (78.0-98.0); Mean Platelet Volume 8.6 fL (7.4-10.4); Platelet Count 227 10x3/uL (130-400); Red Blood Cell (RBC) Count 3.69 mill/uL (4.20-5.40); White Blood Cell (WBC) Count 6.2 10x3/uL (4.8-10.8)
[2022-11-22 06:28] LABS: Anion Gap 12 mmol/L (10-20); BUN (Urea Nitrogen) 21 mg/dL (7.0-18.7); Calc. Creatinine Clearance 75 mL/min (70-130); Calcium 10.8 mg/dL (7.8-10.44); Carbon Dioxide 19 mmol/L (22-29); Chloride 106 mmol/L (98-107); Estimated GFR 60; Glucose 177 mg/dL (70-105); Potassium 4.5 mmol/L (3.5-5.1); Sodium 132 mmol/L (136-145)
[2022-11-22] MEDS: Dexamethasone 4 mg/ml Vial SLOW IVP SCH (06:37)
[2022-11-22] MEDS ORDERED: Magnesium 2 GM/50 ML(in water) 2 GM in Premix Bag 1 BAG IVPB SCH (08:00)
[2022-11-22] MEDS: levETIRAcetam 500 MG TAB PO SCH (08:40)
[2022-11-22] MEDS: Famotidine 20 MG TAB PO SCH (08:40)
[2022-11-22] MEDS: Sodium Chloride 0.9% 500 ML IV SCH ×2 (08:45→10:16)
[2022-11-22 11:32] VITALS: BP 117/80; TEMP 97.6
== END 2022-11-22 13:10 | disposition home or self-care (01) ==
LOC: ERS 12:03 → ERHOLD 13:54 → NEURO 16:02
PROVIDERS: ADMIT Internal Medicine; ATTEND Internal Medicine
DX: G93.41 Metabolic encephalopathy (principal); C50.919 Malignant neoplasm of unspecified site of unspecified female breast; C79.31 Secondary malignant neoplasm of brain; G40.909 Epilepsy, unspecified, not intractable, without status epilepticus; K21.9 Gastro-esophageal reflux disease without esophagitis; R00.0 Tachycardia, unspecified; N17.9 Acute kidney failure, unspecified; E83.52 Hypercalcemia; Z17.1 Estrogen receptor negative status [ER-]; Z79.899 Other long term (current) drug therapy; Z91.041 Radiographic dye allergy status
CPT/HCPCS: 36415; 36416; 70450; 70496; 70498; 80048; 80053; 83735; 84100; 84484; 84703; 85025; 85610; 85730; 93005; 96361; 96372; 96374; 96375; 96376; G0378; J1100; J1642; J1953; J3475; J3480; J7030; Q9967